=== PATIENT | female | born 1955 | race Caucasian/White ===

== ENCOUNTER → 2016-07-09 | Outpatient (CLI) | payer OTHER ==
[~2016-07-09] MED LIST: ISOVUE-370 76% 100ML VIAL (Q9967) As Ordered ONE; OXYC1TAB23 PO
--- NOTE | 2016-07-09 09:21 | REP ---
CT NECK WITH CONTRAST: HISTORY: Hard palate lesion. CONTRAST: Isovue 370, 75 mL. The naso-, gloria- and hypopharynx, larynx and subglottic trachea are normal in appearance. The salivary and thyroid glands are normal. Small lymph nodes less than 1 cm in size are present in the internal jugular chains, posterior triangles, submandibular and submental areas. There is no neck mass or adenopathy. Minimal degenerative change is present in the cervical spine. The lung apices are clear. The visualized sinuses are clear. IMPRESSION: There is no neck mass or adenopathy. Signed by Yasir Leger MD 07/09/2016 09:29 A
== END | disposition home or self-care (01) ==
LOC: M RAD 08:08
PROVIDERS: ATTEND Otolaryngology
DX: K13.79 Other lesions of oral mucosa (principal)

== ENCOUNTER → 2016-08-27 | Outpatient (CLI) | payer OTHER ==
[~2016-08-27] MED LIST changes: -ISOVUE-370 76% 100ML VIAL (Q9967) As Ordered ONE
--- NOTE | 2016-08-27 14:48 | REPMRS ---
Patient History The patient states she had a clinical breast exam in Family history of ovarian cancer in maternal grandmother at age 50 or over. Digital Woman Screen Mammo: August 27, 2016 - Exam #: [id number] Bilateral CC and MLO view(s) were taken. Technologist: Marlena Fisher, Technologist Prior study comparison: June 01, 2014, digital woman screen mammo performed at [facility]. April 02, 2011, bilateral mammogram, performed at [facility]. FINDINGS: There are scattered fibroglandular densities. There has been no change in the appearance of the mammogram from the prior studies. There is a mild amount of scattered fibroglandular density which is fairly symmetric. There is no interval development of dominant mass, architectural distortion, or clustered microcalcification suggestive of malignancy. ASSESSMENT: BI-RADS/ACR category 1 mammogram. Negative. Recommendation Routine screening mammogram in 1 year (for women over age 40). This mammogram was interpreted with the aid of an FDA-approved computer-aided dectection system. Electronically Signed By: Uri Hoang MD 08/27/16 [id number]
== END ==
LOC: M WHC 13:07
PROVIDERS: ATTEND Nurse Practitioner Women's Health
DX: Z12.31 Encounter for screening mammogram for malignant neoplasm of breast (principal); Z80.41 Family history of malignant neoplasm of ovary

== ENCOUNTER → 2017-05-21 | Outpatient (REF) | payer OTHER | LOC: M SFHCWAGY 15:32 | PROVIDERS: ATTEND Nurse Practitioner Women's Health | DX: N89.8 Other specified noninflammatory disorders of vagina (principal); N76.0 Acute vaginitis; B96.89 Other specified bacterial agents as the cause of diseases classified elsewhere ==

== ENCOUNTER → 2017-12-02 | Outpatient (REF) | payer OTHER | LOC: M SFHCWAGY 16:36 | DX: N89.8 Other specified noninflammatory disorders of vagina (principal) ==

== ENCOUNTER 2018-01-15 03:12 | Emergency (ER) | payer OTHER ==
[2018-01-15 04:22] LABS: HEMATOCRIT 42.3 % (36.0-47.0); HEMOGLOBIN 14.2 g/dl (12.0-15.5); MEAN CORPUSCULAR HEMOGLOBIN 30.1 pg (27.0-33.0); MEAN CORPUSCULAR HGB CONC 33.6 g/dl (32.0-36.5); MEAN CORPUSCULAR VOLUME 89.6 fl (80.0-96.0); PLATELET COUNT, AUTOMATED 248 10^3/uL (150-450); RED BLOOD COUNT 4.72 10^6/uL (4.00-5.40); RED CELL DISTRIBUTION WIDTH 12.7 % (11.5-14.5); WHITE BLOOD COUNT 8.4 10^3/uL (4.0-10.0)
[2018-01-15 04:53] LABS: AMPHETAMINES LEVEL URINE NEGATIVE (NEGATIVE); BARBITURATES URINE NEGATIVE (NEGATIVE); BENZODIAZEPINES URINE NEGATIVE (NEGATIVE); CANNABINOIDS URINE POSITIVE (NEGATIVE); COCAINE METABOLITE URINE NEGATIVE (NEGATIVE); METHADONE URINE NEGATIVE (NEGATIVE); OPIATES URINE NEGATIVE (NEGATIVE); PHENCYCLIDINE URINE NEGATIVE (NEGATIVE)
[2018-01-15 04:55] LABS: ALBUMIN 3.6 GM/DL (3.2-5.2); ALKALINE PHOSPHATASE 102 U/L (45-117); ALT/SGPT 23 U/L (12-78); ANION GAP 9 MEQ/L (8-16); AST/SGOT 15 U/L (7-37); BILIRUBIN,DIRECT < 0.1 MG/DL (0.0-0.2); BILIRUBIN,TOTAL 0.3 MG/DL (0.2-1.0); BLOOD UREA NITROGEN 15 MG/DL (7-18); CALCIUM LEVEL 8.4 MG/DL (8.8-10.2); CARBON DIOXIDE LEVEL 25 MEQ/L (21-32); CHLORIDE LEVEL 108 MEQ/L (98-107); CREATININE FOR GFR 0.73 MG/DL (0.55-1.30); ETHYL ALCOHOL (ETHANOL) < 0.003 % (0.000-0.010); GLOMERULAR FILTRATION RATE > 60.0 (>45); GLUCOSE, FASTING 97 MG/DL (70-100); POTASSIUM SERUM 4.1 MEQ/L (3.5-5.1); SALICYLATE LEVEL 4.5 MG/DL (5.0-30.0); SODIUM LEVEL 142 MEQ/L (136-145); THYROID STIMULATING HORMONE 0.676 uIU/ML (0.358-3.740); TOTAL PROTEIN 6.6 GM/DL (6.4-8.2)
[2018-01-15 05:04] LABS: ACETAMINOPHEN LEVEL < 2.0 UG/ML (10.0-30.0)
[2018-01-15] MEDS: SERTRALINE 100 MG TAB PO (09:26)
[2018-01-15] MEDS: LORazepam 1 MG TAB PO (09:26)
== END 2018-01-15 12:14 | disposition home or self-care (01) ==
LOC: M ED 03:12
DX: F32.9 Major depressive disorder, single episode, unspecified (principal); Z72.0 Tobacco use; F12.10 Cannabis abuse, uncomplicated; Z79.899 Other long term (current) drug therapy; Z88.8 Allergy status to other drugs, medicaments and biological substances; Z91.040 Latex allergy status
CPT/HCPCS: 80320

== ENCOUNTER → 2018-04-17 | Outpatient (CLI) | payer OTHER | LOC: M SMT 13:49 | DX: M12.862 Other specific arthropathies, not elsewhere classified, left knee (principal) | CPT/HCPCS: 73564 ==

== ENCOUNTER → 2018-07-30 | Outpatient (REF) | payer OTHER ==
[~2018-07-30] MED LIST changes: +FLUTISP NARES; +HYDR50TA70 PO; +TIZA4CAP6 PO; +XYZA5TAB4 PO; +ZOLO100T PO
== END ==
LOC: M SFHCWAGY 15:34
PROVIDERS: ATTEND Nurse Practitioner Women's Health
DX: R39.15 Urgency of urination (principal); R35.0 Frequency of micturition; R10.2 Pelvic and perineal pain

== ENCOUNTER → 2018-10-14 | Outpatient (CLI) | payer OTHER ==
[2018-10-14 14:55] LABS: BASO # 0.1 10^3/uL (0.0-0.2); BASO % 0.7 % (0.0-1.0); EOS # 0.2 10^3/uL (0.0-0.50); EOS % 2.1 % (0.0-3.0); HEMATOCRIT 45.4 % (36.0-47.0); HEMOGLOBIN 14.7 g/dl (12.0-15.5); LYMPH # 1.9 10^3/uL (1.5-4.5); LYMPH % 25.3 % (24.0-44.0); MEAN CORPUSCULAR HEMOGLOBIN 29.4 pg (27.0-33.0); MEAN CORPUSCULAR HGB CONC 32.4 g/dl (32.0-36.5); MEAN CORPUSCULAR VOLUME 90.8 fl (80.0-96.0); MONO # 0.5 10^3/uL (0.0-0.8); MONO % 6.8 % (0.0-5.0); NEUTROPHILS # 4.7 10^3/uL (1.8-7.7); NEUTROPHILS % 64.8 % (36.0-66.0); PLATELET COUNT, AUTOMATED 255 10^3/uL (150-450); WHITE BLOOD COUNT 7.3 10^3/uL (4.0-10.0)
[2018-10-14 14:57] LABS: ALBUMIN 4.1 GM/DL (3.2-5.2); ALT/SGPT 22 U/L (12-78); BILIRUBIN,TOTAL 0.4 MG/DL (0.2-1.0); BLOOD UREA NITROGEN 13 MG/DL (7-18); CALCIUM LEVEL 9.3 MG/DL (8.8-10.2); CARBON DIOXIDE LEVEL 31 MEQ/L (21-32); CHLORIDE LEVEL 103 MEQ/L (98-107); CHOLESTEROL LEVEL 209 MG/DL (<200); CREATININE FOR GFR 0.82 MG/DL (0.55-1.30); GLOMERULAR FILTRATION RATE > 60.0 (>45); GLUCOSE, FASTING 87 MG/DL (70-100); HDL CHOLESTEROL 54 MG/DL (>40); LDL CHOLESTEROL 134 MG/DL (<100); NON-HDL-C 155 MG/DL; POTASSIUM SERUM 4.2 MEQ/L (3.5-5.1); SODIUM LEVEL 137 MEQ/L (136-145); THYROID STIMULATING HORMONE 0.913 uIU/ML (0.358-3.740); TOTAL PROTEIN 6.9 GM/DL (6.4-8.2); TRIGLYCERIDES LEVEL 103 MG/DL (<150)
[2018-10-14 15:19] LABS: TOTAL 25(OH) VITAMIN D 24.5 NG/ML (30.0-100.0)
== END ==
LOC: M LAB 13:24
PROVIDERS: ATTEND Nurse Practitioner Family
DX: E78.5 Hyperlipidemia, unspecified (principal); E55.9 Vitamin D deficiency, unspecified; R07.9 Chest pain, unspecified

== ENCOUNTER 2019-04-10 14:27 | Emergency (ER) | payer OTHER ==
[~2019-04-10] VITALS: Ht 167.6 cm; Wt 98.9 kg
[2019-04-10] MEDS ORDERED: ABIL1TAB13 PO (14:39)
[2019-04-10] MEDS ORDERED: ACETAMINOPHEN TAB 650MG DOSE (2X325MG) PO ONE (15:00)
[2019-04-10 15:28] VITALS: BP 115/64
--- NOTE | 2019-04-11 07:33 | REP ---
CT BRAIN WITHOUT IV CONTRAST: CT brain performed without IV contrast. Ventricles are normal in size and position with no midline shift or mass effect. Cao-white differentiation is well maintained. There is no acute intracranial hemorrhage or extra-axial fluid collection. No skull fracture is seen. IMPRESSION: Negative noncontrast CT brain. Electronically Signed by Arcadio Cao MD 04/11/2019 12:22 P
--- NOTE | 2019-04-11 07:35 | REP ---
CT CERVICAL SPINE: CT cervical spine performed in the axial plane with sagittal and coronal reconstruction images. There is no compression fracture or malalignment. There is no prevertebral soft tissue swelling. There is mild spurring and disc space narrowing at the C5-6 level. Mild narrowing is also seen at C6-7. No abnormal density is seen in the spinal canal. IMPRESSION: Mild degenerative changes. No fracture or dislocation. Electronically Signed by Arcadio Cao MD 04/11/2019 12:22 P
== END 2019-04-10 15:29 | disposition home or self-care (01) ==
LOC: M ED 14:27
DX: S06.0X0A Concussion without loss of consciousness, initial encounter (principal); S16.1XXA Strain of muscle, fascia and tendon at neck level, initial encounter; Y04.8XXA Assault by other bodily force, initial encounter; Y92.89 Other specified places as the place of occurrence of the external cause; Z79.899 Other long term (current) drug therapy; Z88.8 Allergy status to other drugs, medicaments and biological substances; F17.210 Nicotine dependence, cigarettes, uncomplicated

== ENCOUNTER 2019-05-15 18:14 | Emergency (ER) | payer OTHER ==
[~2019-05-15] VITALS: Ht 167.6 cm; Wt 95.0 kg
[2019-05-15 18:14] VITALS: BP 120/68
[~2019-05-15 18:14] MED LIST changes: +ABIL1TAB13 PO
--- NOTE | 2019-05-15 19:01 | REP ---
Clinical: Cough and chest pain . Comparison: 06/20/2014 . Technique: PA and lateral. Findings: The mediastinum and cardiac silhouette are normal. The lung diaz are clear and without acute consolidation, effusion, or pneumothorax. The skeletal structures are intact and normal. Impression: 1. No acute cardiopulmonary process. Electronically Signed by Ole Dodd MD 05/15/2019 06:52 P
[2019-05-15 19:14] LABS: BASO # 0.1 10^3/uL (0.0-0.2); BASO % 0.8 % (0.0-1.0); EOS # 0.2 10^3/uL (0.0-0.5); EOS % 2.8 % (0.0-3.0); HEMATOCRIT 48.4 % (36.0-47.0); HEMOGLOBIN 15.5 g/dl (12.0-15.5); LYMPH # 2.3 10^3/uL (1.5-5.0); LYMPH % 26.8 % (24.0-44.0); MEAN CORPUSCULAR HEMOGLOBIN 29.5 pg (27.0-33.0); MONO # 0.7 10^3/uL (0.0-0.8); MONO % 8.1 % (0.0-5.0); NEUTROPHILS # 5.3 10^3/uL (1.5-8.5); NEUTROPHILS % 61.3 % (36.0-66.0); PLATELET COUNT, AUTOMATED 262 10^3/uL (150-450); RED BLOOD COUNT 5.26 10^6/uL (4.00-5.40); WHITE BLOOD COUNT 8.7 10^3/uL (4.0-10.0)
[2019-05-15 19:48] LABS: CALCIUM LEVEL 9.4 MG/DL (8.8-10.2); CREATININE FOR GFR 1.02 MG/DL (0.55-1.30); GLOMERULAR FILTRATION RATE 58.7 (>45); POTASSIUM SERUM 4.8 MEQ/L (3.5-5.1)
--- NOTE | 2019-05-16 07:43 | ECGEPIP ---
[facility] - ED Test Date: 2019-05-15 Pat Name: SHELDON SUE Department: Room: - Gender: Female Echo Technician: abdifatah : 1955 Requested By: Arpan Stoner Order Number: [id number] Reading MD: Vikas Sow Measurements Intervals [place] Rate: 70 P: -14 CA: 165 QRS: 13 QRSD: 86 T: 25 QT: 393 QTc: 425 Interpretive Statements SINUS RHYTHM Electronically Signed on 05-16-2019 7:43:32 EST by Vikas Sow
== END 2019-05-15 20:14 | disposition home or self-care (01) ==
LOC: M ED 18:14
DX: J06.9 Acute upper respiratory infection, unspecified (principal); F33.9 Major depressive disorder, recurrent, unspecified; F41.9 Anxiety disorder, unspecified; H91.90 Unspecified hearing loss, unspecified ear; Z79.899 Other long term (current) drug therapy; Z88.8 Allergy status to other drugs, medicaments and biological substances; F17.210 Nicotine dependence, cigarettes, uncomplicated

== ENCOUNTER → 2019-06-18 | Outpatient (CLI) | payer OTHER ==
[2019-06-18 13:36] LABS: BASO # 0.1 10^3/uL (0.0-0.2); BASO % 0.8 % (0.0-1.0); EOS # 0.1 10^3/uL (0.0-0.5); EOS % 1.6 % (0.0-3.0); HEMATOCRIT 49.8 % (36.0-47.0); HEMOGLOBIN 15.8 g/dl (12.0-15.5); LYMPH # 1.7 10^3/uL (1.5-5.0); LYMPH % 20.3 % (24.0-44.0); MEAN CORPUSCULAR HEMOGLOBIN 29.1 pg (27.0-33.0); MEAN CORPUSCULAR HGB CONC 31.7 g/dl (32.0-36.5); MEAN CORPUSCULAR VOLUME 91.7 fl (80.0-96.0); MONO # 0.6 10^3/uL (0.0-0.8); MONO % 6.9 % (0.0-5.0); NEUTROPHILS # 5.9 10^3/uL (1.5-8.5); NEUTROPHILS % 70.2 % (36.0-66.0); PLATELET COUNT, AUTOMATED 264 10^3/uL (150-450); RED BLOOD COUNT 5.43 10^6/uL (4.00-5.40); WHITE BLOOD COUNT 8.4 10^3/uL (4.0-10.0)
[2019-06-18 14:10] LABS: HEMOGLOBIN A1c 5.7 %
[2019-06-18 14:11] LABS: ALBUMIN 4.1 GM/DL (3.2-5.2); ALT/SGPT 28 U/L (12-78); BILIRUBIN,TOTAL 0.5 MG/DL (0.2-1.0); BLOOD UREA NITROGEN 16 MG/DL (7-18); CALCIUM LEVEL 9.3 MG/DL (8.8-10.2); CARBON DIOXIDE LEVEL 27 MEQ/L (21-32); CHLORIDE LEVEL 106 MEQ/L (98-107); CHOLESTEROL LEVEL 223 MG/DL (<200); CHOLESTEROL RISK RATIO 4.744 (<5); CREATININE FOR GFR 0.84 MG/DL (0.55-1.30); GLOMERULAR FILTRATION RATE > 60.0 (>45); GLUCOSE, FASTING 100 MG/DL (70-100); HDL CHOLESTEROL 47 MG/DL (>40); LDL CHOLESTEROL 148 MG/DL (<100); NON-HDL-C 176 MG/DL; POTASSIUM SERUM 4.4 MEQ/L (3.5-5.1); SODIUM LEVEL 138 MEQ/L (136-145); THYROID STIMULATING HORMONE 0.746 uIU/ML (0.358-3.740); TOTAL 25(OH) VITAMIN D 26.4 NG/ML (30.0-100.0); TOTAL PROTEIN 7.3 GM/DL (6.4-8.2); TRIGLYCERIDES LEVEL 139 MG/DL (<150)
== END ==
LOC: M LAB 13:04
PROVIDERS: ATTEND Nurse Practitioner Family
DX: E66.3 Overweight (principal); E11.9 Type 2 diabetes mellitus without complications

== ENCOUNTER → 2019-07-09 | Outpatient (CLI) | payer OTHER ==
[~2019-07-09] MED LIST changes: +ASPE4PAD TOP; +COLA100C5 PO; +IBUP80TA PO; +MIRA3350 PO; +PROC1AER16 PR; +TRAM50TA2 PO
--- NOTE | 2019-07-14 14:13 | DEXA ---
AP SPINE L1 - L4 1.027 -1.4 0.0 LT FEMUR TOTAL 0.904 -0.8 0.2 LT NECK 0.820 -1.6 -0.3 RT FEMUR TOTAL 0.902 -0.8 0.2 RT NECK 0.806 -1.7 -0.4 TOTAL BODY TOTAL OTHER COMMENTS: There is low bone density of the spine and hips. The increased density of the spine does represent a significant change. The decreased density of the left hip does represent a significant change. The decreased density of the right hip does represent a significant change. The density of the spine has decreased 0.8% since the initial exam on 12/09/2006. The spine density has increased 2.4% since the most recent exam on 12/11/2011. The density of the left hip has decreased 12.8% since the initial exam on 12/09/2006. The density of the left hip has decreased 8.3% since the most recent exam on 12/11/2011. The density of the right hip has decreased 10.7% since the initial exam on 12/09/2006. The density of the right hip has decreased 6.4% since the most recent exam on 12/11/2011. FOLLOW-UP: Recommendation for the next bone density exam: 2 years. JOSE ALBERTO
== END ==
LOC: M WHC 14:48
PROVIDERS: ATTEND Nurse Practitioner Family
DX: M85.80 Other specified disorders of bone density and structure, unspecified site (principal)

== ENCOUNTER 2019-07-14 15:52 | Emergency (ER) | payer OTHER ==
[~2019-07-14] VITALS: Ht 167.6 cm; Wt 97.6 kg
[~2019-07-14 15:52] MED LIST changes: -ASPE4PAD TOP; -COLA100C5 PO; -IBUP80TA PO; -MIRA3350 PO; -PROC1AER16 PR; -TRAM50TA2 PO
[2019-07-14] MEDS ORDERED: TRAM50TA2 PO (16:00)
[2019-07-14] MEDS ORDERED: ASPE4PAD TOP (16:00)
[2019-07-14] MEDS ORDERED: IBUP80TA PO (16:00)
[2019-07-14] MEDS ORDERED: NS 1,000 ML IV ONE (18:00)
[2019-07-14] MEDS ORDERED: KETOROLAC 30 MG/ML VIAL (J1885) IV ONE (18:00)
[2019-07-14 18:41] LABS: BASO # 0.1 10^3/uL (0.0-0.2); EOS # 0.2 10^3/uL (0.0-0.5); EOS % 2.3 % (0.0-3.0); HEMATOCRIT 47.3 % (36.0-47.0); HEMOGLOBIN 15.4 g/dl (12.0-15.5); LYMPH # 2.7 10^3/uL (1.5-5.0); LYMPH % 28.7 % (24.0-44.0); MEAN CORPUSCULAR HEMOGLOBIN 29.6 pg (27.0-33.0); MEAN CORPUSCULAR HGB CONC 32.6 g/dl (32.0-36.5); MEAN CORPUSCULAR VOLUME 90.8 fl (80.0-96.0); MONO # 0.8 10^3/uL (0.0-0.8); NEUTROPHILS # 5.5 10^3/uL (1.5-8.5); NEUTROPHILS % 58.8 % (36.0-66.0); PLATELET COUNT, AUTOMATED 277 10^3/uL (150-450); RED BLOOD COUNT 5.21 10^6/uL (4.00-5.40); WHITE BLOOD COUNT 9.3 10^3/uL (4.0-10.0)
[2019-07-14] MEDS ORDERED: ISOVUE-370 76% 100ML VIAL (Q9967) As Ordered ONE (18:42)
[2019-07-14 18:59] LABS: INR 0.95; PARTIAL THROMBOPLASTIN TIME 25.1 SECONDS (25.0-38.4); PROTHROMBIN TIME 12.4 SECONDS (11.8-14.0)
[2019-07-14 19:13] LABS: ALT/SGPT 31 U/L (12-78); BILIRUBIN,DIRECT < 0.1 MG/DL (0.0-0.2); BILIRUBIN,TOTAL 0.3 MG/DL (0.2-1.0); LIPASE 182 U/L (73-393); TOTAL PROTEIN 7.3 GM/DL (6.4-8.2)
--- NOTE | 2019-07-14 19:34 | REPVR ---
PROCEDURE INFORMATION: Exam: CT Abdomen And Pelvis With Contrast Exam date and time: 07/14/2019 6:53 PM Age: 63 years old Clinical indication: Abdominal pain; Localized; Lower; Additional info: Rectal pain/lower abd pain TECHNIQUE: Imaging protocol: Computed tomography of the abdomen and pelvis with intravenous contrast. Radiation optimization: All CT scans at this facility use at least one of these dose optimization techniques: automated exposure control; mA and/or kV adjustment per patient size (includes targeted exams where dose is matched to clinical indication); or iterative reconstruction. Contrast material: ISOVUE 370; Contrast volume: 100 ml; Contrast route: IV; COMPARISON: US PELVIC NON-OB COMPLETE 06/28/2014 4:25 PM FINDINGS: Liver: There is a diffuse decrease in hepatic parenchymal density, consistent with fatty infiltration. Gallbladder and bile ducts: The gallbladder is incompletely distended. This is most likely related to incomplete fasting. Clinical correlation to exclude gallbladder pathology suggested. Pancreas: Normal. No ductal dilation. Spleen: Normal. No splenomegaly. Adrenals: Normal. No mass. Kidneys and ureters: Normal. No hydronephrosis. Stomach and bowel: Unremarkable. No obstruction. No mucosal thickening. Appendix: No evidence of appendicitis. Intraperitoneal space: Unremarkable. No free air. No significant fluid collection. Vasculature: Unremarkable. No abdominal aortic aneurysm. Lymph nodes: Unremarkable. No enlarged lymph nodes. Bladder: There is mild diffuse thickening of the wall of the bladder without significant perivesicular inflammatory changes. Findings may indicate cystitis. Reproductive: There has been a hysterectomy. Bones/joints: Unremarkable. No acute fracture. Soft tissues: Bilateral inguinal hernias without incarceration. Fatty mid ventral abdominal wall hernia without evidence of incarceration. IMPRESSION: 1. There is a diffuse decrease in hepatic parenchymal density, consistent with fatty infiltration. 2. The gallbladder is incompletely distended. This is most likely related to incomplete fasting. Clinical correlation to exclude gallbladder pathology suggested. 3. There has been a hysterectomy. 4. There is mild diffuse thickening of the wall of the bladder without significant perivesicular inflammatory changes. Findings may indicate cystitis. 5. Fatty mid ventral abdominal wall hernia without evidence of incarceration. Electronically signed by: Kedar Holland On 07/14/2019 19:34:41 PM
[2019-07-14] MEDS ORDERED: PROC1AER16 PR (20:10)
[2019-07-14] MEDS ORDERED: MIRA3350 PO (20:10)
[2019-07-14] MEDS ORDERED: COLA100C5 PO (20:10)
[2019-07-14 20:15] VITALS: BP 140/79
== END 2019-07-14 20:32 | disposition home or self-care (01) ==
LOC: M ED 15:52
DX: K64.9 Unspecified hemorrhoids (principal); K40.90 Unilateral inguinal hernia, without obstruction or gangrene, not specified as recurrent; M54.9 Dorsalgia, unspecified; G89.29 Other chronic pain; F41.9 Anxiety disorder, unspecified; F32.9 Major depressive disorder, single episode, unspecified; F17.210 Nicotine dependence, cigarettes, uncomplicated; Z88.8 Allergy status to other drugs, medicaments and biological substances; Z79.899 Other long term (current) drug therapy
CPT/HCPCS: 74177; 80047; 80076; 81001; 83690; 85025; 85610; 85730; 96361; 96374; 99284; J1885; Q9967

== ENCOUNTER → 2019-07-23 | Outpatient (REF) | payer OTHER ==
[~2019-07-23] MED LIST changes: +ASPE4PAD TOP; +COLA100C5 PO; +IBUP80TA PO; +MIRA3350 PO; +PROC1AER16 PR; +TRAM50TA2 PO
== END ==
LOC: M PLALAB 15:08
PROVIDERS: ATTEND Family Medicine
DX: L98.9 Disorder of the skin and subcutaneous tissue, unspecified (principal)

== ENCOUNTER → 2020-04-25 | Outpatient (CLI) | payer OTHER ==
[2020-04-25 12:15] LABS: HEMOGLOBIN 15.3 g/dl (12.0-15.5); MEAN CORPUSCULAR HEMOGLOBIN 29.3 pg (27.0-33.0); MEAN CORPUSCULAR HGB CONC 31.9 g/dl (32.0-36.5); PLATELET COUNT, AUTOMATED 274 10^3/uL (150-450); RED BLOOD COUNT 5.22 10^6/uL (4.00-5.40); WHITE BLOOD COUNT 9.9 10^3/uL (4.0-10.0)
[2020-04-25 12:46] LABS: ALBUMIN 3.8 GM/DL (3.2-5.2); ALT/SGPT 26 U/L (12-78); BILIRUBIN,TOTAL 0.4 MG/DL (0.2-1.0); BLOOD UREA NITROGEN 19 MG/DL (7-18); CALCIUM LEVEL 9.2 MG/DL (8.8-10.2); CARBON DIOXIDE LEVEL 29 MEQ/L (21-32); CHLORIDE LEVEL 104 MEQ/L (98-107); CHOLESTEROL LEVEL 185 MG/DL (<200); CHOLESTEROL RISK RATIO 3.854 (<5); CREATININE FOR GFR 0.72 MG/DL (0.55-1.30); GLOMERULAR FILTRATION RATE > 60.0 (>45); GLUCOSE, FASTING 86 MG/DL (70-100); HDL CHOLESTEROL 48 MG/DL (>40); LDL CHOLESTEROL 107 MG/DL (<100); NON-HDL-C 137 MG/DL; POTASSIUM SERUM 4.5 MEQ/L (3.5-5.1); SODIUM LEVEL 139 MEQ/L (136-145); THYROID STIMULATING HORMONE 0.753 uIU/ML (0.358-3.740); TOTAL 25(OH) VITAMIN D 21.3 NG/ML (30.0-100.0); TOTAL PROTEIN 7.1 GM/DL (6.4-8.2); TRIGLYCERIDES LEVEL 152 MG/DL (<150)
[2020-04-25 13:29] LABS: HEMOGLOBIN A1c 5.4 %
== END ==
LOC: M LAB 11:18
DX: E66.3 Overweight (principal)

== ENCOUNTER → 2020-10-24 | Outpatient (CLI) | payer OTHER ==
--- NOTE | 2020-10-24 08:13 | REP ---
INDICATION: UMBILICAL PAIN, STATUS POST HERNIA PAIN COMPARISON: None. TECHNIQUE: Real time ferrara scale ultrasound examination using linear high-frequency transducer. FINDINGS: Ultrasound examination of the periumbilical region demonstrates a 2.4 x 2.6 x 1.6 cm ovoid hyperechoic focus containing small 6 mm benign cystic component likely representing postsurgical granulation tissue. Structure appears avascular. Patient is noted to be status post umbilical hernia repair with mesh deep to the above-mentioned structure. Remainder of the surrounding subcutaneous tissue appears normal. IMPRESSION: Small hyperechoic area as described above most likely representing postsurgical granulation tissue. <Electronically signed by Ole Dodd > 10/24/20 08
== END ==
LOC: M RAD 07:02
PROVIDERS: ATTEND Surgery
DX: R10.33 Periumbilical pain (principal)

== ENCOUNTER 2020-11-18 19:42 | Emergency (ER) | payer OTHER ==
[~2020-11-18] VITALS: Ht 165.1 cm; Wt 98.9 kg
[2020-11-18 19:43] VITALS: BP 119/63
[2020-11-18] MEDS ORDERED: BUSP5TA PO (19:54)
== END 2020-11-18 21:25 | disposition home or self-care (01) ==
LOC: M ED 19:42
DX: J32.9 Chronic sinusitis, unspecified (principal); F17.200 Nicotine dependence, unspecified, uncomplicated; Z79.899 Other long term (current) drug therapy; Z88.8 Allergy status to other drugs, medicaments and biological substances

== ENCOUNTER → 2020-11-20 | Outpatient (CLI) | payer OTHER ==
[~2020-11-20] MED LIST changes: +BUSP5TA PO
--- NOTE | 2020-11-20 08:45 | REP ---
INDICATION: RIGHT UPPER QUAD PAIN COMPARISON: None. TECHNIQUE: Real time ferrara scale ultrasound examination using curved array transducer. FINDINGS: Liver is mildly hyperechoic suggesting fatty infiltration without focal hepatic lesions identified. Pancreas is incompletely evaluated due to interposed bowel gas. The gallbladder is normal and without gallstones, wall thickening, or pericholecystic fluid. No biliary ductal dilatation is appreciated and the common bile duct measures 5 mm diameter. Right kidney is normal in reniform shape without hydronephrosis and measures 10.5 x 6.7 x 4.5 cm. No ascites in the visualized right upper quadrant. IMPRESSION: Hepatosteatosis. <Electronically signed by Ole Dodd > 11/20/20 [id number]
== END ==
LOC: M RAD 08:05
PROVIDERS: ATTEND Surgery
DX: R10.11 Right upper quadrant pain (principal)

== ENCOUNTER → 2021-01-09 | Outpatient (CLI) | payer OTHER ==
--- NOTE | 2021-01-09 16:26 | REP ---
INDICATION: ABD PAIN, R/O KIDNEY STONE. COMPARISON: 07/14/2019 TECHNIQUE: Noncontrast scanning through the abdomen and pelvis with both coronal and sagittal reconstructions. FINDINGS: CT abdomen pelvis: Lung bases are clear. The heart is not grossly enlarged there is calcification of the mitral annulus but no pericardial thickening or effusion. No hiatal hernia. Liver and spleen show no focal lesion. The gallbladder is contracted without calcified stone. Retained meal in the stomach. Pancreas shows no mass, ductal dilatation or adjacent inflammatory change the abdominal aorta is without aneurysm. There is no periaortic, other retroperitoneal or intra-pathologic sized lymph adenopathy. Small bowel loops in the abdomen and pelvis were unremarkable and without dilatation or air-fluid levels. Abdominal portions of the colon show no sign of colitis or diverticulitis. No ascites in the abdomen or pelvis. Lung window review of all images there is shows no evidence of perforation or free air. Kidneys show no hydronephrosis, stone, mass or perinephric edema on axial image 69, a subtle density is seen that may reflect the 1-2 mm stone in the proximal ureter. However there is no collecting system or ureteral dilatation. Remainder of the course of the ureter was unremarkable and without dilatation or stone. There are some pelvic phleboliths present. The bladder shows no wall thickening, mass or stone. Distal ureters not dilated near it. The pelvic portions of colon and small bowel were unremarkable. There is no ventral or inguinal hernia in the pelvis. There is a small amount of omental fat herniating into the periumbilical region but no bowel herniation. Bone windows are unchanged without acute compression deformity or destructive lesions. No inguinal adenopathy or hernia. No midline ventral hernia in the pelvis. IMPRESSION: There is a subtle 1-2 mm density proximal right ureter on axial images 69. May reflect is tiny stone in this region however there is no hydronephrosis or hydroureter above that point nor any other suspicious findings in the remainder of the ureter. No ureteral stone on the left. Left kidney and collecting system unremarkable as well. Finding may represent a noncalcified and certainly nonobstructive stone. No other significant or acute findings. <Electronically signed by Steve Major > 01/09/21 [id number]
== END ==
LOC: M RAD 14:57
PROVIDERS: ATTEND Nurse Practitioner Family
DX: R10.9 Unspecified abdominal pain (principal)

== ENCOUNTER → 2021-02-05 | Outpatient (CLI) | payer OTHER ==
[2021-02-05 16:05] LABS: HEMATOCRIT 44.4 % (36.0-47.0); HEMOGLOBIN 14.8 g/dl (12.0-15.5); MEAN CORPUSCULAR HEMOGLOBIN 29.6 pg (27.0-33.0); MEAN CORPUSCULAR HGB CONC 33.3 g/dl (32.0-36.5); MEAN CORPUSCULAR VOLUME 88.8 fl (80.0-96.0); PLATELET COUNT, AUTOMATED 245 10^3/uL (150-450)
[2021-02-05 16:34] LABS: ALBUMIN 3.5 GM/DL (3.2-5.2); ALT/SGPT 29 U/L (12-78); BILIRUBIN,TOTAL 0.3 MG/DL (0.2-1.0); BLOOD UREA NITROGEN 13 MG/DL (7-18); CALCIUM LEVEL 9.2 MG/DL (8.8-10.2); CARBON DIOXIDE LEVEL 29 MEQ/L (21-32); CHLORIDE LEVEL 104 MEQ/L (98-107); CREATININE FOR GFR 0.77 MG/DL (0.55-1.30); GLOMERULAR FILTRATION RATE > 60.0 (>45); GLUCOSE, FASTING 93 MG/DL (70-100); POTASSIUM SERUM 4.1 MEQ/L (3.5-5.1); SODIUM LEVEL 137 MEQ/L (136-145); TOTAL PROTEIN 6.6 GM/DL (6.4-8.2)
== END ==
LOC: M LAB 15:11
PROVIDERS: ATTEND Nurse Practitioner Family
DX: R10.9 Unspecified abdominal pain (principal)

== ENCOUNTER → 2021-02-06 | Outpatient (REF) | payer OTHER | LOC: M LAB REF 09:04 | PROVIDERS: ATTEND Nurse Practitioner Family | DX: K92.1 Melena (principal) ==

== ENCOUNTER → 2021-03-01 | Outpatient (CLI) | payer OTHER ==
--- NOTE | 2021-03-01 16:38 | REP ---
INDICATION: LOW BACK PAIN COMPARISON: 07/11/2010 TECHNIQUE: AP, lateral, bilateral oblique, and coned-down views of the lumbar spine. FINDINGS: Age-related osteopenia and mild degenerative changes include endplate sclerosis with disc space narrowing at L5-S1 and associated facet hypertrophy. Alignment and lordosis maintained. No acute fracture/compression injury or subluxation. IMPRESSION: Relatively stable osteopenia and lower lumbar degenerative changes. <Electronically signed by Ole Dodd > 03/01/21 [id number]
--- NOTE | 2021-03-01 16:39 | REP ---
INDICATION: LOW BACK PAIN Nontraumatic hip pain. COMPARISON: None. TECHNIQUE: Frontal view of the pelvis with neutral and frog lateral views of the right hip. FINDINGS: No evidence for acute fracture or dislocation. Generalized age-related changes to the hip joints includes subtle sclerosis and minimal joint space narrowing (left greater than right). IMPRESSION: Relatively age-related changes noted bilaterally. <Electronically signed by Ole Dodd > 03/01/21 [id number]
--- NOTE | 2021-03-01 16:52 | REP ---
INDICATION: LOW BACK PAIN COMPARISON: None. TECHNIQUE: AP, lateral, bilateral oblique and sunrise views. FINDINGS: The osseous structures and joint spaces are intact and essentially age-appropriate. There is no evidence for acute fracture or dislocation. No joint effusion is appreciated. Surrounding soft tissues are unremarkable. No subcutaneous emphysema or radiodense foreign body. IMPRESSION: Essentially age-appropriate right knee radiographs. No overt arthritic changes. No evidence for acute or healed injury. <Electronically signed by Ole Dodd > 03/01/21 0977
== END ==
LOC: M RAD 16:01
PROVIDERS: ATTEND Nurse Practitioner Family
DX: M54.5 Low back pain (principal); M51.26 Other intervertebral disc displacement, lumbar region

== ENCOUNTER → 2021-03-07 | Outpatient (CLI) | payer OTHER ==
[2021-03-07 14:09] LABS: RHEUMATOID FACTOR QUANT < 10.0 IU/ML (<15.0); URIC ACID 3.6 MG/DL (2.6-6.0)
[2021-03-09 00:06] LABS: ANTINUCLEAR ANTIBODIES DIRECT Negative (Negative); CYCLIC CITRULLINATED PEPTIDE 6 units (0-19); Lyme Disease IgG/IgM Antibodie <0.91 ISR (0.00-0.90); Lyme Disease IgM Ab Quantitati <0.80 index (0.00-0.79)
== END ==
LOC: M LAB 12:22
PROVIDERS: ATTEND Nurse Practitioner Family
DX: M25.50 Pain in unspecified joint (principal)

== ENCOUNTER → 2021-03-09 | Outpatient (REF) | payer OTHER ==
[~2021-03-09] MED LIST changes: +CIPR-249 PO
[2021-03-09 19:13] LABS: APPEARANCE, URINE CLEAR (CLEAR); BACTERIA, URINE AUTO NEGATIVE (NEGATIVE); BILIRUBIN, URINE AUTO NEGATIVE (NEGATIVE); BLOOD, URINE BLOOD NEGATIVE (NEGATIVE); COLOR, URINE YELLOW (YELLOW); GLUCOSE, URINE (UA) AUTO NEGATIVE (NEGATIVE); KETONE, URINE AUTO NEGATIVE (NEGATIVE); LEUKOCYTE ESTERASE, URINE AUTO NEGATIVE (NEGATIVE); NITRITE, URINE AUTO NEGATIVE (NEGATIVE); PROTEIN, URINE AUTO NEGATIVE (NEGATIVE); RBC, URINE AUTO 0 /HPF (0-3); SPECIFIC GRAVITY URINE AUTO 1.013 (1.002-1.035); SQUAMOUS EPITHELIAL CELL UR AU 1 /HPF (0-6); UROBILINOGEN, URINE AUTO 0.2 mg/dL (0.0-2.0); WBC, URINE AUTO 0 /HPF (0-3)
== END ==
LOC: M SMT 18:47
PROVIDERS: ATTEND Urology
DX: R30.0 Dysuria (principal)

== ENCOUNTER 2021-03-11 14:47 | Emergency (ER) | payer OTHER ==
[~2021-03-11] VITALS: Ht 167.6 cm; Wt 97.5 kg
[~2021-03-11 14:47] MED LIST changes: -CIPR-249 PO
[2021-03-11 16:48] LABS: BASO # 0.1 10^3/uL (0.0-0.2); BASO % 0.6 % (0.0-1.0); EOS # 0.1 10^3/uL (0.0-0.5); EOS % 1.5 % (0.0-3.0); HEMATOCRIT 47.8 % (36.0-47.0); HEMOGLOBIN 15.8 g/dl (12.0-15.5); LYMPH % 23.8 % (24.0-44.0); MEAN CORPUSCULAR HGB CONC 33.1 g/dl (32.0-36.5); MEAN CORPUSCULAR VOLUME 90.7 fl (80.0-96.0); MONO # 0.8 10^3/uL (0.0-0.8); NEUTROPHILS # 5.5 10^3/uL (1.5-8.5); NEUTROPHILS % 64.7 % (36.0-66.0); PLATELET COUNT, AUTOMATED 258 10^3/uL (150-450); RED BLOOD COUNT 5.27 10^6/uL (4.00-5.40); WHITE BLOOD COUNT 8.5 10^3/uL (4.0-10.0)
[2021-03-11] MEDS ORDERED: KETOROLAC 30 MG/ML 1ML VIAL IV ONE (16:50)
[2021-03-11] MEDS ORDERED: NS 1,000 ML IV ONE (16:50)
[2021-03-11] MEDS ORDERED: ONDANSETRON 4MG/2ML VIAL IV ONE (16:50)
[2021-03-11 17:21] LABS: ALBUMIN 3.8 GM/DL (3.2-5.2); BILIRUBIN,DIRECT 0.1 MG/DL (0.0-0.2); BILIRUBIN,TOTAL 0.4 MG/DL (0.2-1.0); TOTAL PROTEIN 7.3 GM/DL (6.4-8.2)
--- NOTE | 2021-03-11 17:48 | REP ---
INDICATION: ruq pain. COMPARISON: 11/20/2020 TECHNIQUE: Real-time sonographic evaluation of the right upper quadrant FINDINGS: Multiple ultrasonographic images of the liver show diffuse increased echoes throughout the hepatic parenchyma without evidence of a mass or ductal dilatation. The common bile duct measures approximately 6 mm in its greatest transverse dimension. Multiple ultrasonographic images of the gallbladder show no focal or diffuse gallbladder wall thickening. There are no echogenic foci within the gallbladder lumen, which casts acoustic shadows. There is no pericholecystic edema. Images of the pancreatic region show no gross abnormality. The imaged portion of the right kidney is unremarkable. IMPRESSION: Fatty infiltration of the liver. No change from 11/21/2019 Accredited by the [employer] in General Ultrasound. <Electronically signed by Stanton Rutherford > 03/11/21 [id number]
[2021-03-11] MEDS ORDERED: ISOVUE-370 76% 100ML VIAL As Ordered ONE (18:43)
--- NOTE | 2021-03-11 20:36 | REPVR ---
PROCEDURE INFORMATION: Exam: CT Abdomen And Pelvis With Contrast Exam date and time: 03/11/2021 6:48 PM Age: 65 years old Clinical indication: Abdominal pain; Additional info: Right sided abd pain TECHNIQUE: Imaging protocol: Computed tomography of the abdomen and pelvis with contrast. Radiation optimization: All CT scans at this facility use at least one of these dose optimization techniques: automated exposure control; mA and/or kV adjustment per patient size (includes targeted exams where dose is matched to clinical indication); or iterative reconstruction. Contrast material: ISOVUE 370; Contrast volume: 100 ml; Contrast route: INTRAVENOUS (IV); COMPARISON: CT ABD PELVIS W/O CONTRAST 01/09/2021 3:08 PM FINDINGS: Lungs: 4 mm x 2 mm density at the right lung base is probably a benign finding. Heart: The heart is normal in size and there is no pericardial effusion. Liver: Normal appearing liver. Gallbladder and bile ducts: Normal gallbladder. Pancreas: Normal pancreas. Spleen: Normal spleen. Adrenal glands: Normal adrenal glands. Kidneys and ureters: There is enhancement of both kidneys. There is no evidence of obstruction of the right or left ureter. There is opacification of the right and left kidney. Stomach and bowel: Unremarkable. No obstruction. No mucosal thickening. Appendix: Normal appendix. Intraperitoneal space: There is no evidence of mesenteric mass. There is no evidence of free fluid in the abdomen or the pelvis. Vasculature: There is opacification of the aorta which appears intact. There is opacification of the SMV and the SMA. There is enhancement of the aorta and appearing normal in size. There is opacification of the SMV and the SMA. Lymph nodes: Unremarkable. No enlarged lymph nodes. Urinary bladder: The urinary bladder is empty. Reproductive: Patient is status post hysterectomy. Bones/joints: Unremarkable. No acute fracture. Soft tissues: There is no evidence of soft tissue abnormality. IMPRESSION: Normal appearing CT scan of the abdomen and pelvis. Electronically signed by: Ra Diaz On 03/11/2021 20:36:12 PM
[2021-03-11] MEDS ORDERED: CIPROFLOXACIN 500MG TABLET PO ONE (21:10)
[2021-03-11] MEDS ORDERED: CIPR-249 PO (21:11)
[2021-03-11 21:23] VITALS: BP 122/72
== END 2021-03-11 21:25 | disposition home or self-care (01) ==
LOC: M ED 14:47
DX: N39.0 Urinary tract infection, site not specified (principal); K76.0 Fatty (change of) liver, not elsewhere classified; Z79.899 Other long term (current) drug therapy
CPT/HCPCS: 74177; 76705; 80047; 80076; 81001; 83690; 85025; 87086; 96361; 96374; 96375; 99284; J1885; J2405; Q9967

== ENCOUNTER 2021-03-15 18:09 | Emergency (ER) | payer OTHER ==
[~2021-03-15] VITALS: Ht 167.6 cm; Wt 97.1 kg
[~2021-03-15 18:09] MED LIST changes: +CIPR-249 PO
[2021-03-16] MEDS ORDERED: diazePAM 10MG/2ML SYRINGE (J3360 PER 5MG) IV ONE (02:10)
[2021-03-16 02:16] LABS: BASO # 0.1 10^3/uL (0.0-0.2); BASO % 0.7 % (0.0-1.0); EOS # 0.2 10^3/uL (0.0-0.5); EOS % 2.1 % (0.0-3.0); HEMATOCRIT 46.5 % (36.0-47.0); HEMOGLOBIN 15.6 g/dl (12.0-15.5); LYMPH # 2.6 10^3/uL (1.5-5.0); LYMPH % 29.9 % (24.0-44.0); MEAN CORPUSCULAR HEMOGLOBIN 30.2 pg (27.0-33.0); MEAN CORPUSCULAR HGB CONC 33.5 g/dl (32.0-36.5); MEAN CORPUSCULAR VOLUME 90.1 fl (80.0-96.0); MONO # 0.8 10^3/uL (0.0-0.8); MONO % 9.1 % (2.0-8.0); PLATELET COUNT, AUTOMATED 247 10^3/uL (150-450); RED BLOOD COUNT 5.16 10^6/uL (4.00-5.40); WHITE BLOOD COUNT 8.6 10^3/uL (4.0-10.0)
[2021-03-16 02:21] LABS: GLUCOSE, URINE (UA) MANUAL NEGATIVE (NEGATIVE); KETONE, URINE MANUAL NEGATIVE (NEGATIVE); UROBILINOGEN, URINE MANUAL NORMAL (NORMAL)
[2021-03-16 02:22] LABS: BILIRUBIN, URINE MANUAL 1+ (NEGATIVE)
[2021-03-16] MEDS ORDERED: NS 500 ML IV ONE (02:25)
[2021-03-16 02:27] LABS: RBC, URINE 0-1 /hpf (0-3)
[2021-03-16 02:28] LABS: AMORPHOUS SEDIMENT, URINE SMALL AMOUNT (NEGATIVE); BACTERIA, URINE SMALL AMOUNT; CALCIUM OXALATE CRYSTALS,URINE SMALL AMOUNT /hpf; HYALINE CAST, URINE NONE SEEN /lpf (0-1); SQUAMOUS EPITHELIAL CELL URINE MOD AMOUNT /hpf (SMALL AMT)
[2021-03-16] MEDS ORDERED: MORPHINE 2 MG/ML 1ML VIAL (J2270) IV ONE (02:50)
[2021-03-16 03:05] LABS: ALBUMIN 3.7 GM/DL (3.2-5.2); BILIRUBIN,DIRECT 0.1 MG/DL (0.0-0.2); BILIRUBIN,TOTAL 0.5 MG/DL (0.2-1.0); CALCIUM LEVEL 9.4 MG/DL (8.8-10.2); CREATININE FOR GFR 1.02 MG/DL (0.55-1.30); GLOMERULAR FILTRATION RATE 58.3 (>45); POTASSIUM SERUM 4.2 MEQ/L (3.5-5.1); TOTAL PROTEIN 7.2 GM/DL (6.4-8.2)
[2021-03-16] MEDS ORDERED: PHENAZOPYRIDINE 100 MG TAB PO ONE (04:05)
[2021-03-16 04:30] VITALS: BP 117/57
[2021-03-16] MEDS ORDERED: PERC5TAB12 PO (05:24)
[2021-03-16] MEDS ORDERED: OXYCODONE/APAP 5MG/325MG(BULK FOR ED) 1 TABLET PO ONE (05:25)
== END 2021-03-16 05:59 | disposition home or self-care (01) ==
LOC: M ED 18:09
DX: R10.2 Pelvic and perineal pain (principal); F33.9 Major depressive disorder, recurrent, unspecified; F17.200 Nicotine dependence, unspecified, uncomplicated; Z79.51 Long term (current) use of inhaled steroids; Z79.899 Other long term (current) drug therapy; Z88.8 Allergy status to other drugs, medicaments and biological substances
CPT/HCPCS: 80048; 80076; 81000; 82150; 83690; 85025; 87086; 87210; 96361; 96374; 99284; J2270; J3360

== ENCOUNTER → 2021-03-16 | Outpatient (REF) | payer OTHER ==
[~2021-03-16] MED LIST changes: +PERC5TAB12 PO
== END ==
LOC: M SFHCWAGY 09:45
PROVIDERS: ATTEND Specialist
DX: N94.819 Vulvodynia, unspecified (principal)

== ENCOUNTER 2021-03-20 22:26 | Emergency (ER) | payer OTHER ==
[~2021-03-20] VITALS: Ht 167.6 cm; Wt 95.7 kg
[2021-03-21 04:52] LABS: BASO # 0.1 10^3/uL (0.0-0.2); BASO % 0.4 % (0.0-1.0); EOS # 0.1 10^3/uL (0.0-0.5); EOS % 0.5 % (0.0-3.0); HEMATOCRIT 44.3 % (36.0-47.0); HEMOGLOBIN 14.7 g/dl (12.0-15.5); LYMPH # 3.2 10^3/uL (1.5-5.0); LYMPH % 26.3 % (24.0-44.0); MEAN CORPUSCULAR HEMOGLOBIN 30.1 pg (27.0-33.0); MEAN CORPUSCULAR HGB CONC 33.2 g/dl (32.0-36.5); MEAN CORPUSCULAR VOLUME 90.6 fl (80.0-96.0); MONO % 8.4 % (2.0-8.0); NEUTROPHILS # 7.9 10^3/uL (1.5-8.5); PLATELET COUNT, AUTOMATED 266 10^3/uL (150-450); RED BLOOD COUNT 4.89 10^6/uL (4.00-5.40); WHITE BLOOD COUNT 12.3 10^3/uL (4.0-10.0)
[2021-03-21 05:13] LABS: BLOOD UREA NITROGEN 17 MG/DL (7-18); CALCIUM LEVEL 9.3 MG/DL (8.8-10.2); CARBON DIOXIDE LEVEL 28 MEQ/L (21-32); CHLORIDE LEVEL 106 MEQ/L (98-107); CREATININE FOR GFR 0.98 MG/DL (0.55-1.30); GLOMERULAR FILTRATION RATE > 60.0 (>45); GLUCOSE, FASTING 96 MG/DL (70-100); POTASSIUM SERUM 4.4 MEQ/L (3.5-5.1); SODIUM LEVEL 138 MEQ/L (136-145)
[2021-03-21] MEDS ORDERED: diazePAM 10MG/2ML SYRINGE (J3360 PER 5MG) IV ONE (05:35)
[2021-03-21] MEDS: NS 1,000 ML IV SCH ×2 (06:00→12:15)
[2021-03-21] MEDS ORDERED: PREGABALIN 75 MG CAP(LYRICA) PO ONE ×2 (08:30→16:05)
[2021-03-21] MEDS: MORPHINE 2 MG/ML 1ML VIAL (J2270) IV PRN ×2 (08:52→16:14)
--- NOTE | 2021-03-21 15:12 | REPVR ---
PROCEDURE INFORMATION: Exam: MR Lumbar Spine Without Contrast Exam date and time: 03/21/2021 2:30 PM Age: 65 years old Clinical indication: Low back pain; Additional info: Low back pain leg numbness TECHNIQUE: Imaging protocol: Multiplanar magnetic resonance images of the lumbar spine without intravenous contrast. COMPARISON: CR Spine. Lumbosacral, complete 03/01/2021 4:15 PM FINDINGS: Vertebrae: Evaluation of the marrow demonstrates no evidence of acute fracture line, high-grade compression deformity, worrisome malalignment, or marrow edema. Benign marrow signal on the T1 weighted images. Hemangiomas are present in T12 and L1. Abge-ft-[id number] posterior element hypertrophic changes at multiple levels. Minimal scoliosis. Limited Modic-type changes in the endplates at L4-L5 and L5-S1. Spinal cord: The conus terminates at L1-L2 without abnormal cord signal. T11-T12: Minimal bulging of the disc right paracentral location at T11-12 without significant mass effect, incompletely visualized. L1-L2: No significant disc disease. No significant spinal canal stenosis. No neural foraminal stenosis. L2-L3: No significant disc disease. No significant spinal canal stenosis. No neural foraminal stenosis. L3-L4: At L3-L4, there is disc material bulging into the left foramina proximally. No significant central stenosis. Mild left-sided foraminal encroachment. L4-L5: At L4-L5, mild broad bulging of the disc is most pronounced centrally without high-grade central stenosis. Minimal bilateral foraminal encroachment. L5-S1: At L5-S1, there is no significant disc abnormality. No high-grade central stenosis. Posterior element hypertrophic changes contribute to mild right and minimal left foraminal encroachment. Sacrum/coccyx: Symmetric SI joints. Soft tissues: Paraspinal muscular atrophy without paraspinal mass or hematoma. Disc desiccation at multiple levels with disc space loss most pronounced at L5-S1. IMPRESSION: Degenerative changes and disc abnormalities with mild mass effect as described. No abnormal cord signal. Electronically signed by: Dilip Crawford On 03/21/2021 15:12:28 PM
[2021-03-21] MEDS ORDERED: LYRI75CA PO (16:07)
[2021-03-21 16:18] VITALS: BP 135/65
[2021-03-22] MEDS ORDERED: PREG75CA2 (13:34)
[2021-03-22] MEDS ORDERED: OXYC1TAB23 (13:34)
[2021-03-22] MEDS ORDERED: BACTDSTA (13:34)
[2021-03-22] MEDS ORDERED: OXYB5TAB10 PO (18:43)
[2021-03-22] MEDS ORDERED: RA M1.74 PO (18:43)
[2021-03-22] MEDS ORDERED: ESTR1TAB3 PO (18:43)
[2021-03-22] MEDS ORDERED: MIRA3350 PO (18:43)
== END 2021-03-21 16:28 | disposition home or self-care (01) ==
LOC: M ED 22:26
DX: N39.0 Urinary tract infection, site not specified (principal); Z79.899 Other long term (current) drug therapy; Z88.8 Allergy status to other drugs, medicaments and biological substances; F17.210 Nicotine dependence, cigarettes, uncomplicated
CPT/HCPCS: 72148; 80048; 81001; 85025; 87086; 96374; 96375; 96376; 99284; J2270; J3360

== ENCOUNTER 2021-03-22 13:16 | Emergency (ER) | payer OTHER ==
[~2021-03-22] VITALS: Ht 167.6 cm; Wt 95.9 kg
[~2021-03-22 13:16] MED LIST changes: +LYRI75CA PO; +estradioL 1 MG TAB PO SCH
[2021-03-22] MEDS ORDERED: OXYC1TAB23 (13:34)
[2021-03-22] MEDS ORDERED: PREG75CA2 (13:34)
[2021-03-22] MEDS ORDERED: BACTDSTA (13:34)
[2021-03-22] MEDS ORDERED: KETOROLAC 30 MG/ML 1ML VIAL IV ONE (15:15)
[2021-03-22 15:19] LABS: BASO # 0.1 10^3/uL (0.0-0.2); BASO % 0.6 % (0.0-1.0); EOS # 0.1 10^3/uL (0.0-0.5); EOS % 0.5 % (0.0-3.0); HEMATOCRIT 43.6 % (36.0-47.0); HEMOGLOBIN 14.5 g/dl (12.0-15.5); LYMPH # 1.4 10^3/uL (1.5-5.0); LYMPH % 14.5 % (24.0-44.0); MEAN CORPUSCULAR HEMOGLOBIN 29.7 pg (27.0-33.0); MEAN CORPUSCULAR HGB CONC 33.3 g/dl (32.0-36.5); MEAN CORPUSCULAR VOLUME 89.2 fl (80.0-96.0); MONO # 0.5 10^3/uL (0.0-0.8); MONO % 5.5 % (2.0-8.0); NEUTROPHILS # 7.7 10^3/uL (1.5-8.5); NEUTROPHILS % 78.4 % (36.0-66.0); PLATELET COUNT, AUTOMATED 249 10^3/uL (150-450); RED BLOOD COUNT 4.89 10^6/uL (4.00-5.40); WHITE BLOOD COUNT 9.9 10^3/uL (4.0-10.0)
[2021-03-22 15:35] LABS: ALBUMIN 3.5 GM/DL (3.2-5.2); ALT/SGPT 38 U/L (12-78); BILIRUBIN,DIRECT < 0.1 MG/DL (0.0-0.2); BILIRUBIN,TOTAL 0.3 MG/DL (0.2-1.0); LIPASE 119 U/L (73-393); TOTAL PROTEIN 6.6 GM/DL (6.4-8.2)
--- NOTE | 2021-03-22 16:28 | REP ---
INDICATION: sev bilat pelvic pain COMPARISON: None. TECHNIQUE: Transabdominal pelvic ultrasound followed by transvaginal examination for better evaluation of the endometrium and adnexa. FINDINGS: Bladder is unremarkable and measures 7.6 x 3.8 x 6.5 cm. Patient is noted to be status post total hysterectomy. No residual uterine tissue, pelvic mass or fluid appreciated. IMPRESSION: Prior hysterectomy. No obvious abnormality. <Electronically signed by Ole Dodd > 03/22/21 [id number]
[2021-03-22] MEDS ORDERED: BUPIVACAINE HCL 0.25% 10ML VIAL SC ONE (16:40)
[2021-03-22] MEDS ORDERED: oxyBUTYnin 5 MG TAB PO ONE (17:25)
--- NOTE | 2021-03-22 17:55 | CR.PDOC ---
General Date of Consultation: Mar 22, 2021 Consultation REASON FOR CONSULTATION/CHIEF COMPLAINT: Pelvic pain, vaginal pain. HISTORY OF PRESENT ILLNESS: 65-year-old G2, P2 female presents with 2 weeks of intense burning in the vaginal area. Pain is constant and severe. She presents to the emergency department today by ambulance. This is her fourth trip to the emergency room over the last 2 weeks. She also complains of spasms of her bladder and dull lower pelvic pain. She had a biopsy of the vulva done in the office which returned nonspecific inflammation. Lidocaine jelly that was ordered at that time is provided no relief. She is also tried vaginal estrogen cream with no relief. The ER is prescribed her both Percocet and Lyrica to help with pain. She had a CT the abdomen pelvis, pelvic ultrasound, and an MRI of her lower spine. She has appointment with urology on Friday for evaluation of possible interstitial cystitis. ALLERGIES: Please see below. HOME MEDICATIONS: Please see below. PAST MEDICAL HISTORY: 1. Chronic pelvic pain status post hysterectomy. 2. Current smoker. PAST SURGICAL HISTORY: 1. Hysterectomy with bilateral salpingo-oophorectomy 2016 2. Ear surgery FAMILY HISTORY: Noncontributory SOCIAL HISTORY: Employment: None Tobacco use: Yes REVIEW OF SYSTEMS: Negative except was already been described PHYSICAL EXAMINATION: VITAL SIGNS: Please see below. GENERAL APPEARANCE: Appears mildly uncomfortable. HEENT: NCAT. RESPIRATORY: CTA. CARDIOVASCULAR: RRR. ABDOMEN: Nontender soft nondistended normal bowel sounds. EXTREMITIES: Nontender Pelvic exam: Mild vulvovaginal atrophy otherwise normal. LABORATORY DATA: Please see below. 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 1. Plan oral estrogen 1 mg daily. 2. Plan oxybutynin 5 mg orally twice daily 3. Continue Lyrica, and Percocet as ordered. 4. Avoid topical medications 5. Keep appointment with urology for possible cystoscopy as evaluation for in terstitial cystitis. 6. Area injected with 15 cc of 0.25% Marcaine solution. Patient had immediate r elief of vulvar pain. 7. Written consent obtained for vulvar injection. Vital Signs/I&O Vital Signs Date Time Temp Pulse Resp B/P (MAP) Pulse Ox O2 Delivery O2 Flow Rate FiO2 03/22/21 13:38 96.8 81 17 114/67 (83) 97 Room Air Laboratory Data Labs 24H Laboratory Tests 2 03/22/21 14:46: Immature Granulocyte % (Auto) 0.5, Neutrophils (%) (Auto) 78.4H, Lymphocytes (%) (Auto) 14.5L, Monocytes (%) (Auto) 5.5, Eosinophils (%) (Auto) 0.5, Basophils (%) (Auto) 0.6, Neutrophils # (Auto) 7.7, Lymphocytes # (Auto) 1.4L, Monocytes # (Auto) 0.5, Eosinophils # (Auto) 0.1, Basophils # (Auto) 0.1, Nucleated Red Blood Cells % (auto) 0.0, Urine Color YELLOW, Urine Appearance CLEAR, Urine pH 6.0, Urine Specific [place] 1.012, Urine Protein NEGATIVE, Urine Glucose (UA) NEGATIVE, Urine Ketones NEGATIVE, Urine Blood NEGATIVE, Urine Nitrite NEGATIVE, Urine Bilirubin NEGATIVE, Urine Urobilinogen 0.2, Urine Leukocyte Esterase 2+H, Urine WBC (Auto) 7H, Urine RBC (Auto) 2, Urine Hyaline Casts (Auto) 0, Urine Bacteria (Auto) NEGATIVE, Urine Squamous Epithelial Cells 1, Urine Sperm (Auto) , Total Bilirubin 0.3, Direct Bilirubin < 0.1, Aspartate Amino Transf (AST/SGOT) 22, Alanine Aminotransferase (ALT/SGPT) 38, Alkaline Phosphatase 79, Total Protein 6.6, Albumin 3.5, Albumin/Globulin Ratio 1.1L, Lipase 119 03/22/21 14:56: POC Glucose (Misc Panel) 112H, POC Sodium (Misc Panel) 136, POC Potassium (Misc Panel) 4.1, POC Chloride (Misc Panel) 102, POC Total CO2 (Misc Panel) 23.0, POC Blood Urea Nitrogen (Misc Panel 18, POC Ionized Calcium (Misc Panel) 4.9, POC Creatinine (Misc Panel) 0.9, POC Hematocrit (Misc Panel) 45.0 CBC/BMP Laboratory Tests 03/22/21 14:46 Microbiology Microbiology 03/22/21 Urine Culture, Received Pending Allergies Coded Allergies: gabapentin (Verified Allergy, Intermediate, TACHYCARDIC, 04/10/19) cyclobenzaprine (Verified Allergy, Mild, TACHYCARDIA, 04/10/19) Home Medications Scheduled Buspirone HCl (Buspirone HCl) 5 Mg Tablet, 5 MG PO DAILY, (Reported) Docusate Sodium (Colace) 100 Mg Capsule, 1 CAP PO BID for 30 Days, #60 Fluticasone Propionate (Fluticasone Propionate) 50 Mcg/Act Spr, 2 SPRAY NARES DAILY for 30 Days, #1 (Reported) Levocetirizine Dihydrochloride (Xyzal) 5 Mg Tab, 5 MG PO DAILY for 30 Days, #30 (Reported) Lidocaine (Aspercreme) 4% Adh..patch, 1 PATCH TOP DAILY, (Reported) Sertraline Hcl (Zoloft) 100 Mg Tab, 200 MG PO DAILY for 30 Days, #30 (Reported) Scheduled PRN Ibuprofen (Ibuprofen) 800 Mg Tablet, 1 TAB PO Q6HP PRN for pain, (Reported) Polyethylene Glycol 3350 (Miralax) 119 Gm Powder, 17 GM PO DAILY PRN for CONSTIPATION, #1 dilute in 8 ounces of water or juice Miscellaneous Medications Oxycodone HCl/Acetaminophen (Oxycodone-Acetaminophen 5-325) 1 Each Tablet, (Reported) Pregabalin (Pregabalin) 75 Mg Capsule, (Reported) Sulfamethoxazole/Trimethoprim (Sulfamethoxazole-Tmp Ds Tablet) 1 Each Tablet, (Reported) NICOLE TRIPP MD Mar 22, 2021 17:55
[2021-03-22] MEDS ORDERED: FLEET ENEMA PR ONE (18:30)
[2021-03-22] MEDS ORDERED: ESTR1TAB3 PO (18:43)
[2021-03-22] MEDS ORDERED: OXYB5TAB10 PO (18:43)
[2021-03-22] MEDS ORDERED: RA M1.74 PO (18:43)
[2021-03-22] MEDS ORDERED: MIRA3350 PO (18:43)
[2021-03-22 19:07] VITALS: BP 118/69
== END 2021-03-22 19:17 | disposition home or self-care (01) ==
LOC: M ED 13:16
DX: N94.819 Vulvodynia, unspecified (principal); R10.2 Pelvic and perineal pain; Z79.899 Other long term (current) drug therapy; Z88.8 Allergy status to other drugs, medicaments and biological substances
CPT/HCPCS: 76830; 76856; 80047; 80076; 81001; 83690; 85025; 87086; 96374; 99284; J1885

== ENCOUNTER → 2021-08-02 | Outpatient (CLI) | payer OTHER ==
[~2021-08-02] MED LIST changes: +BACTDSTA; +ESTR1TAB3 PO; +OXYB5TAB10 PO; +OXYC1TAB23; +PREG75CA2; +RA M1.74 PO; -estradioL 1 MG TAB PO SCH
== END ==
LOC: M RAD 13:37
PROVIDERS: ATTEND Nurse Practitioner Family
DX: Z87.891 Personal history of nicotine dependence (principal)

== ENCOUNTER → 2021-08-23 | Outpatient (CLI) | payer OTHER ==
[2021-08-23 11:26] LABS: BASO # 0.1 10^3/uL (0.0-0.2); BASO % 0.7 % (0.0-1.0); EOS # 0.2 10^3/uL (0.0-0.5); EOS % 2.3 % (0.0-3.0); HEMATOCRIT 47.2 % (36.0-47.0); HEMOGLOBIN 15.6 g/dl (12.0-15.5); LYMPH # 2.2 10^3/uL (1.5-5.0); LYMPH % 25.6 % (24.0-44.0); MEAN CORPUSCULAR HEMOGLOBIN 29.8 pg (27.0-33.0); MEAN CORPUSCULAR HGB CONC 33.1 g/dl (32.0-36.5); MEAN CORPUSCULAR VOLUME 90.1 fl (80.0-96.0); MONO # 0.6 10^3/uL (0.0-0.8); MONO % 7.1 % (2.0-8.0); NEUTROPHILS # 5.5 10^3/uL (1.5-8.5); NEUTROPHILS % 63.8 % (36.0-66.0); PLATELET COUNT, AUTOMATED 269 10^3/uL (150-450); RED BLOOD COUNT 5.24 10^6/uL (4.00-5.40); WHITE BLOOD COUNT 8.7 10^3/uL (4.0-10.0)
[2021-08-23 12:22] LABS: ALBUMIN 3.8 GM/DL (3.2-5.2); ALT/SGPT 37 U/L (12-78); BILIRUBIN,TOTAL 0.3 MG/DL (0.2-1.0); BLOOD UREA NITROGEN 14 MG/DL (7-18); CALCIUM LEVEL 9.2 MG/DL (8.8-10.2); CARBON DIOXIDE LEVEL 32 MEQ/L (21-32); CHLORIDE LEVEL 102 MEQ/L (98-107); CHOLESTEROL LEVEL 214 MG/DL (<200); CHOLESTEROL RISK RATIO 2.743 (<5); CREATININE FOR GFR 0.85 MG/DL (0.55-1.30); GLOMERULAR FILTRATION RATE > 60.0 (>45); GLUCOSE, FASTING 96 MG/DL (70-100); HDL CHOLESTEROL 78 MG/DL (>40); LDL CHOLESTEROL 121 MG/DL (<100); NON-HDL-C 136 MG/DL; POTASSIUM SERUM 4.4 MEQ/L (3.5-5.1); SODIUM LEVEL 139 MEQ/L (136-145); THYROID STIMULATING HORMONE 0.897 uIU/ML (0.358-3.740); TOTAL 25(OH) VITAMIN D 18.4 NG/ML (30.0-100.0); TOTAL PROTEIN 7.3 GM/DL (6.4-8.2); TRIGLYCERIDES LEVEL 76 MG/DL (<150)
== END ==
LOC: M LAB 10:41
PROVIDERS: ATTEND Nurse Practitioner Family
DX: E66.3 Overweight (principal)

== ENCOUNTER → 2021-10-19 | Outpatient (CLI) | payer OTHER | LOC: M LAB 15:57 | PROVIDERS: ATTEND Nurse Practitioner Family | DX: A28.1 Cat-scratch disease (principal) ==

== ENCOUNTER → 2022-05-02 | Outpatient (CLI) | payer OTHER | LOC: M PLAIMG 09:51 | DX: R90.82 White matter disease, unspecified (principal); M43.02 Spondylolysis, cervical region; M50.222 Other cervical disc displacement at C5-C6 level; G44.52 New daily persistent headache (NDPH); R20.0 Anesthesia of skin; R20.2 Paresthesia of skin ==

== ENCOUNTER 2022-05-19 13:06 | Emergency (ER) | payer OTHER ==
[~2022-05-19] VITALS: Ht 162.6 cm; Wt 101.4 kg
[2022-05-19] MEDS ORDERED: HYDR50TA70 PO (13:18)
[2022-05-19] MEDS ORDERED: COLA100C5 PO (13:18)
[2022-05-19] MEDS ORDERED: DULO1CAP6 PO (13:18)
[2022-05-19] MEDS ORDERED: CRAN400C PO (13:18)
[2022-05-19] MEDS ORDERED: IBUPROFEN 800 MG TAB PO ONE (14:05)
[2022-05-19] MEDS ORDERED: BENZONATATE 100MG CAPSULE PO ONE (14:05)
[2022-05-19] MEDS ORDERED: AMOX875T2 PO (15:36)
[2022-05-19 15:50] VITALS: BP 121/69
== END 2022-05-19 15:52 | disposition home or self-care (01) ==
LOC: M ED 13:06
DX: J06.9 Acute upper respiratory infection, unspecified (principal); B34.3 Parvovirus infection, unspecified; H72.2X1 Other marginal perforations of tympanic membrane, right ear; G89.29 Other chronic pain; M54.9 Dorsalgia, unspecified; F32.A Depression, unspecified; F41.9 Anxiety disorder, unspecified; M99.05 Segmental and somatic dysfunction of pelvic region; F17.200 Nicotine dependence, unspecified, uncomplicated; Z79.899 Other long term (current) drug therapy

== ENCOUNTER → 2022-05-24 | Outpatient (CLI) | payer OTHER ==
[~2022-05-24] MED LIST changes: +AMOX875T2 PO; +CRAN400C PO; +DULO1CAP6 PO
== END ==
LOC: M PLARAD 13:11
PROVIDERS: ATTEND Nurse Practitioner Family
DX: M54.16 Radiculopathy, lumbar region (principal); M99.63 Osseous and subluxation stenosis of intervertebral foramina of lumbar region; M99.64 Osseous and subluxation stenosis of intervertebral foramina of sacral region

== ENCOUNTER → 2022-06-27 | Outpatient (CLI) | payer OTHER | LOC: M RAD 13:41 | PROVIDERS: ATTEND Nurse Practitioner Family | DX: J32.9 Chronic sinusitis, unspecified (principal); R53.83 Other fatigue; H92.01 Otalgia, right ear; G89.29 Other chronic pain; R51.9 Headache, unspecified ==

== ENCOUNTER → 2022-07-11 | Outpatient (CLI) | payer OTHER | LOC: M LAB 15:59 | PROVIDERS: ATTEND Nurse Practitioner Family | DX: E55.9 Vitamin D deficiency, unspecified (principal) ==

== ENCOUNTER → 2022-07-19 | Outpatient (CLI) | payer OTHER | LOC: M PLARAD 13:45 | PROVIDERS: ATTEND Nurse Practitioner Family | DX: R10.2 Pelvic and perineal pain (principal) ==

== ENCOUNTER 2022-08-05 17:00 | Emergency (ER) | payer OTHER ==
[~2022-08-05] VITALS: Ht 165.1 cm; Wt 95.9 kg
[2022-08-05 17:00] VITALS: BP 122/60
[2022-08-05 18:33] LABS: BASO # 0.1 10^3/uL (0.0-0.2); BASO % 0.7 % (0.0-1.0); EOS # 0.2 10^3/uL (0.0-0.5); EOS % 1.9 % (0.0-3.0); HEMATOCRIT 46.8 % (36.0-47.0); HEMOGLOBIN 15.2 g/dl (12.0-15.5); LYMPH # 2.6 10^3/uL (1.5-5.0); LYMPH % 31.2 % (24.0-44.0); MEAN CORPUSCULAR HGB CONC 32.5 g/dl (32.0-36.5); MEAN CORPUSCULAR VOLUME 92.5 fl (80.0-96.0); MONO # 0.5 10^3/uL (0.0-0.8); MONO % 6.5 % (2.0-8.0); NEUTROPHILS # 4.9 10^3/uL (1.5-8.5); NEUTROPHILS % 59.3 % (36.0-66.0); PLATELET COUNT, AUTOMATED 235 10^3/uL (150-450); RED BLOOD COUNT 5.06 10^6/uL (4.00-5.40); WHITE BLOOD COUNT 8.3 10^3/uL (4.0-10.0)
[2022-08-05 18:43] LABS: LIPASE 50 U/L (12-53)
[2022-08-05 18:49] LABS: ALBUMIN 3.6 G/DL (3.2-5.2); ALKALINE PHOSPHATASE 84 U/L (46-116); ALT/SGPT 28 U/L (7.0-40); AST/SGOT 25 U/L (<34); BILIRUBIN,DIRECT < 0.1 MG/DL (<0.4); BILIRUBIN,TOTAL 0.3 MG/DL (0.3-1.2); BLOOD UREA NITROGEN 11 MG/DL (9-23); CALCIUM LEVEL 9.4 MG/DL (8.3-10.6); CARBON DIOXIDE LEVEL 30 MMOL/L (20-31); CHLORIDE LEVEL 103 MMOL/L (98-107); CREATININE FOR GFR 0.75 MG/DL (0.55-1.30); GLOMERULAR FILTRATION RATE > 60.0 (>45); GLUCOSE, FASTING 139 MG/DL (74-106); SODIUM LEVEL 138 MMOL/L (136-145); TOTAL PROTEIN 6.3 G/DL (5.7-8.2)
== END 2022-08-05 20:08 | disposition left against medical advice (07) ==
LOC: M ED 17:00
DX: Z53.21 Procedure and treatment not carried out due to patient leaving prior to being seen by health care provider (principal)

== ENCOUNTER → 2022-09-10 | Outpatient (CLI) | payer OTHER | LOC: M RAD 14:29 | PROVIDERS: ATTEND Nurse Practitioner Family | DX: F17.210 Nicotine dependence, cigarettes, uncomplicated (principal) ==

== ENCOUNTER → 2022-12-25 | Outpatient (CLI) | payer MEDICARE, MEDICAID ==
[~2022-12-25] MED LIST changes: +FLUT50SP17 NARES; -FLUTISP NARES
== END ==
LOC: M RAD 15:30
PROVIDERS: ATTEND Nurse Practitioner Family
DX: J84.10 Pulmonary fibrosis, unspecified (principal)

== ENCOUNTER → 2023-05-30 | Outpatient (CLI) | payer OTHER, MEDICAID ==
[~2023-05-30] MED LIST changes: -FLUT50SP17 NARES; +FLUTISP NARES; -OXYB5TAB10 PO; +OXYB5TAB11 PO; -PREG75CA2; +PREG75CA3
[2023-05-30 15:45] LABS: BASO # 0.1 10^3/uL (0.0-0.2); BASO % 0.8 % (0.0-1.0); EOS # 0.2 10^3/uL (0.0-0.5); EOS % 2.2 % (0.0-3.0); HEMATOCRIT 45.5 % (36.0-47.0); HEMOGLOBIN 14.8 g/dl (12.0-15.5); LYMPH # 2.3 10^3/uL (1.5-5.0); LYMPH % 25.5 % (24.0-44.0); MEAN CORPUSCULAR HEMOGLOBIN 30.3 pg (27.0-33.0); MEAN CORPUSCULAR HGB CONC 32.5 g/dl (32.0-36.5); MEAN CORPUSCULAR VOLUME 93.2 fl (80.0-96.0); MONO # 0.7 10^3/uL (0.0-0.8); MONO % 7.7 % (2.0-8.0); NEUTROPHILS # 5.8 10^3/uL (1.5-8.5); NEUTROPHILS % 63.6 % (36.0-66.0); PLATELET COUNT, AUTOMATED 238 10^3/uL (150-450); RED BLOOD COUNT 4.88 10^6/uL (4.00-5.40); WHITE BLOOD COUNT 9.2 10^3/uL (4.0-10.0)
[2023-05-30 16:18] LABS: ALBUMIN 3.6 G/DL (3.2-5.2); ALKALINE PHOSPHATASE 95 U/L (46-116); ALT/SGPT 33 U/L (7.0-40); AST/SGOT 21 U/L (<34); BILIRUBIN,TOTAL 0.4 MG/DL (0.3-1.2); BLOOD UREA NITROGEN 16 MG/DL (9-23); CALCIUM LEVEL 9.8 MG/DL (8.3-10.6); CARBON DIOXIDE LEVEL 30 MMOL/L (20-31); CHLORIDE LEVEL 103 MMOL/L (98-107); CHOLESTEROL LEVEL 179 MG/DL (<200); CHOLESTEROL RISK RATIO 3.85 (<5); GLOMERULAR FILTRATION RATE > 60.0 (>45); GLUCOSE, FASTING 87 MG/DL (74-106); HDL CHOLESTEROL 46.4 MG/DL (>40); LDL CHOLESTEROL 96.8 MG/DL (<100); NON-HDL-C 132.6 MG/DL; POTASSIUM SERUM 4.2 MMOL/L (3.5-5.1); SODIUM LEVEL 138 MMOL/L (136-145); THYROID STIMULATING HORMONE 1.251 uIU/ML (0.55-4.78); TOTAL PROTEIN 6.8 G/DL (5.7-8.2); TRIGLYCERIDES LEVEL 179 MG/DL (<150)
== END ==
LOC: M LAB 15:17
PROVIDERS: ATTEND Nurse Practitioner Family
DX: R60.9 Edema, unspecified (principal); Z13.220 Encounter for screening for lipoid disorders; Z79.899 Other long term (current) drug therapy

== ENCOUNTER 2023-07-24 18:36 | Emergency (ER) | payer OTHER, MEDICAID ==
[~2023-07-24] VITALS: Ht 165.1 cm; Wt 93.6 kg
[2023-07-24 18:58] VITALS: TEMP 97.7
[2023-07-24 19:31] LABS: BASO % 0.5 % (0.0-1.0); EOS # 0.3 10^3/uL (0.0-0.5); EOS % 3.9 % (0.0-3.0); HEMATOCRIT 44.8 % (36.0-47.0); LYMPH # 1.9 10^3/uL (1.5-5.0); LYMPH % 23.6 % (24.0-44.0); MEAN CORPUSCULAR HEMOGLOBIN 31.3 pg (27.0-33.0); MEAN CORPUSCULAR HGB CONC 33.5 g/dl (32.0-36.5); MEAN CORPUSCULAR VOLUME 93.3 fl (80.0-96.0); MONO # 0.7 10^3/uL (0.0-0.8); MONO % 8.6 % (2.0-8.0); NEUTROPHILS % 63.1 % (36.0-66.0); PLATELET COUNT, AUTOMATED 215 10^3/uL (150-450)
[2023-07-24] MEDS: KETOROLAC 30 MG/ML 1ML VIAL IV ONE (20:06)
[2023-07-24 21:51] VITALS: O2SAT 95
[2023-07-24 22:02] VITALS: BP 113/65
== END 2023-07-24 22:49 | disposition home or self-care (01) ==
LOC: M ED 18:36 → EDBD 18:36 → M ED 22:49
DX: R10.2 Pelvic and perineal pain (principal); J44.9 Chronic obstructive pulmonary disease, unspecified; F32.9 Major depressive disorder, single episode, unspecified; F41.9 Anxiety disorder, unspecified; Z79.899 Other long term (current) drug therapy
CPT/HCPCS: 74176; 80047; 81001; 85025; 96374; 99285; J1885

== ENCOUNTER 2023-08-11 09:28 | Emergency (ER) | payer OTHER, MEDICAID ==
[~2023-08-11] VITALS: Ht 165.1 cm; Wt 92.9 kg
[~2023-08-11 09:28] MED LIST changes: -OXYB5TAB11 PO; +OXYB5TAB14 PO
[2023-08-11] MEDS: CYCLOBENZAPRINE 10MG TABLET PO ONE (11:58)
[2023-08-11] MEDS: KETOROLAC 30 MG/ML 1ML VIAL IV ONE (11:58)
[2023-08-11 12:15] LABS: BASO # 0.1 10^3/uL (0.0-0.2); BASO % 0.9 % (0.0-1.0); EOS # 0.2 10^3/uL (0.0-0.5); EOS % 2.1 % (0.0-3.0); HEMATOCRIT 47.7 % (36.0-47.0); HEMOGLOBIN 15.6 g/dl (12.0-15.5); LYMPH # 2.2 10^3/uL (1.5-5.0); LYMPH % 30.1 % (24.0-44.0); MEAN CORPUSCULAR HEMOGLOBIN 30.5 pg (27.0-33.0); MEAN CORPUSCULAR HGB CONC 32.7 g/dl (32.0-36.5); MEAN CORPUSCULAR VOLUME 93.2 fl (80.0-96.0); MONO # 0.6 10^3/uL (0.0-0.8); MONO % 7.7 % (2.0-8.0); NEUTROPHILS # 4.4 10^3/uL (1.5-8.5); NEUTROPHILS % 58.9 % (36.0-66.0); PLATELET COUNT, AUTOMATED 214 10^3/uL (150-450); RED BLOOD COUNT 5.12 10^6/uL (4.00-5.40); WHITE BLOOD COUNT 7.5 10^3/uL (4.0-10.0)
[2023-08-11 12:21] LABS: ERYTHROCYTE SEDIMENTATION RATE 7 mm/hr (0-30)
[2023-08-11 12:37] LABS: C REACTIVE PROTEIN QUANTITATIV < 0.40 MG/DL (<1.0)
[2023-08-11 12:38] LABS: ALBUMIN 3.5 G/DL (3.2-5.2); ALKALINE PHOSPHATASE 68 U/L (46-116); ALT/SGPT 26 U/L (7.0-40); AST/SGOT 21 U/L (<34); BILIRUBIN,DIRECT 0.1 MG/DL (<0.4); BILIRUBIN,TOTAL 0.5 MG/DL (0.3-1.2); BLOOD UREA NITROGEN 13 MG/DL (9-23); CALCIUM LEVEL 9.7 MG/DL (8.3-10.6); CARBON DIOXIDE LEVEL 32 MMOL/L (20-31); CHLORIDE LEVEL 108 MMOL/L (98-107); CREATININE FOR GFR 0.73 MG/DL (0.55-1.30); GLOMERULAR FILTRATION RATE > 60.0 (>45); GLUCOSE, FASTING 93 MG/DL (74-106); POTASSIUM SERUM 4.8 MMOL/L (3.5-5.1); SODIUM LEVEL 139 MMOL/L (136-145); TOTAL PROTEIN 6.4 G/DL (5.7-8.2)
[2023-08-11] MEDS ORDERED: CYCL-707 PO (13:36)
[2023-08-11 13:58] VITALS: BP 127/67; TEMP 97.6; O2SAT 98
== END 2023-08-11 13:56 | disposition home or self-care (01) ==
LOC: M ED 09:28
DX: J34.89 Other specified disorders of nose and nasal sinuses (principal); M54.2 Cervicalgia; S33.5XXA Sprain of ligaments of lumbar spine, initial encounter; J44.9 Chronic obstructive pulmonary disease, unspecified; F17.210 Nicotine dependence, cigarettes, uncomplicated; Y92.9 Unspecified place or not applicable; Y93.9 Activity, unspecified; Y99.9 Unspecified external cause status; Z79.2 Long term (current) use of antibiotics; Z79.899 Other long term (current) drug therapy
CPT/HCPCS: 70450; 70486; 72125; 72131; 80048; 80076; 83605; 85025; 85652; 86140; 87040; 96374; 99284; J1885

== ENCOUNTER 2023-08-25 18:10 | Emergency (ER) | payer OTHER, MEDICAID ==
[~2023-08-25 18:10] MED LIST changes: +CYCL-707 PO
[2023-08-25] MEDS: KETOROLAC 60MG 2ML VIAL IM ONE (22:54)
[2023-08-25] MEDS: ACETAMINOPH W/CODEINE #3 TAB UD PO ONE ×2 (22:55→23:45)
[2023-08-25 23:51] VITALS: BP 126/66; TEMP 97.6; O2SAT 96
== END 2023-08-25 23:58 | disposition home or self-care (01) ==
LOC: EDBD 18:10 → M ED 18:10
DX: M54.2 Cervicalgia (principal); M54.50 Low back pain, unspecified; G89.29 Other chronic pain; J44.9 Chronic obstructive pulmonary disease, unspecified; F17.200 Nicotine dependence, unspecified, uncomplicated; Z79.899 Other long term (current) drug therapy
CPT/HCPCS: 96372; 99284; J1885

== ENCOUNTER → 2023-08-27 | Outpatient (CLI) | payer OTHER, MEDICAID | LOC: M RAD 15:54 | PROVIDERS: ATTEND Nurse Practitioner | DX: G44.89 Other headache syndrome (principal) ==

== ENCOUNTER → 2023-09-05 | Outpatient (CLI) | payer OTHER, MEDICAID | LOC: M PLAIMG 14:46 | PROVIDERS: ATTEND Nurse Practitioner | DX: M50.322 Other cervical disc degeneration at C5-C6 level (principal); M48.02 Spinal stenosis, cervical region ==

== ENCOUNTER → 2023-11-26 | Outpatient (CLI) | payer OTHER, MEDICAID ==
[~2023-11-26] MED LIST changes: -CRAN400C PO; +CRANBERRY400 MG PO; +TIZA4CAP3 PO; -TIZA4CAP6 PO
== END ==
LOC: M RAD 14:38
PROVIDERS: ATTEND Nurse Practitioner
DX: T74.11XA Adult physical abuse, confirmed, initial encounter (principal)

== ENCOUNTER → 2024-01-15 | Outpatient (CLI) | payer OTHER, MEDICAID | LOC: M WHC 14:52 | PROVIDERS: ATTEND Nurse Practitioner | DX: Z12.31 Encounter for screening mammogram for malignant neoplasm of breast (principal) ==

== ENCOUNTER → 2024-01-27 | Outpatient (CLI) | payer OTHER, MEDICAID ==
[2024-01-27 11:22] LABS: BASO # 0.1 10^3/uL (0.0-0.2); BASO % 0.7 % (0.0-1.0); EOS # 0.2 10^3/uL (0.0-0.5); EOS % 1.9 % (0.0-3.0); HEMATOCRIT 46.5 % (36.0-47.0); HEMOGLOBIN 15.2 g/dl (12.0-15.5); LYMPH # 2.1 10^3/uL (1.5-5.0); LYMPH % 26.1 % (24.0-44.0); MEAN CORPUSCULAR HEMOGLOBIN 30.6 pg (27.0-33.0); MEAN CORPUSCULAR HGB CONC 32.7 g/dl (32.0-36.5); MEAN CORPUSCULAR VOLUME 93.6 fl (80.0-96.0); MONO # 0.6 10^3/uL (0.0-0.8); MONO % 7.6 % (2.0-8.0); NEUTROPHILS # 5.1 10^3/uL (1.5-8.5); NEUTROPHILS % 63.5 % (36.0-66.0); PLATELET COUNT, AUTOMATED 241 10^3/uL (150-450); RED BLOOD COUNT 4.97 10^6/uL (4.00-5.40)
[2024-01-27 11:50] LABS: CREATININE, URINE 33.8 MG/DL; MALB URINE SIEMENS < 3.0 MG/L; MAU/CREAT RATIO 8.8 MCG/MG (0.0-30.0)
[2024-01-27 11:51] LABS: ALBUMIN 3.8 G/DL (3.2-5.2); ALKALINE PHOSPHATASE 96 U/L (46-116); ALT/SGPT 27 U/L (7.0-40); AST/SGOT 18 U/L (<34); BILIRUBIN,TOTAL 0.4 MG/DL (0.3-1.2); BLOOD UREA NITROGEN 14 MG/DL (9-23); CALCIUM LEVEL 9.6 MG/DL (8.3-10.6); CARBON DIOXIDE LEVEL 33 MMOL/L (20-31); CHLORIDE LEVEL 104 MMOL/L (98-107); CHOLESTEROL LEVEL 186 MG/DL (<200); CHOLESTEROL RISK RATIO 2.97 (<5); CREATININE FOR GFR 0.75 MG/DL (0.55-1.30); GLOMERULAR FILTRATION RATE > 60.0 (>45); GLUCOSE, FASTING 62 MG/DL (74-106); HDL CHOLESTEROL 62.5 MG/DL (>40); LDL CHOLESTEROL 105.5 MG/DL (<100); NON-HDL-C 123.5 MG/DL; POTASSIUM SERUM 4.4 MMOL/L (3.5-5.1); SODIUM LEVEL 136 MMOL/L (136-145); TOTAL PROTEIN 6.8 G/DL (5.7-8.2); TRIGLYCERIDES LEVEL 90 MG/DL (<150)
[2024-01-27 11:55] LABS: THYROID STIMULATING HORMONE 0.793 uIU/ML (0.55-4.78)
== END ==
LOC: M LAB 10:43
PROVIDERS: ATTEND Nurse Practitioner
DX: E55.9 Vitamin D deficiency, unspecified (principal); E66.3 Overweight; M81.0 Age-related osteoporosis without current pathological fracture; G89.4 Chronic pain syndrome; Z79.899 Other long term (current) drug therapy

== ENCOUNTER → 2024-01-28 | Outpatient (CLI) | payer OTHER, MEDICAID | LOC: M RAD 16:50 | PROVIDERS: ATTEND Nurse Practitioner | DX: Z12.2 Encounter for screening for malignant neoplasm of respiratory organs (principal); F17.210 Nicotine dependence, cigarettes, uncomplicated ==

== ENCOUNTER → 2024-02-20 | Outpatient (CLI) | payer OTHER, MEDICAID ==
[2024-02-20 15:57] LABS: BASO # 0.1 10^3/uL (0.0-0.2); EOS # 0.2 10^3/uL (0.0-0.5); EOS % 2.4 % (0.0-3.0); HEMATOCRIT 42.1 % (36.0-47.0); HEMOGLOBIN 14.1 g/dl (12.0-15.5); LYMPH # 2.6 10^3/uL (1.5-5.0); LYMPH % 29.2 % (24.0-44.0); MEAN CORPUSCULAR HEMOGLOBIN 30.9 pg (27.0-33.0); MEAN CORPUSCULAR HGB CONC 33.5 g/dl (32.0-36.5); MEAN CORPUSCULAR VOLUME 92.3 fl (80.0-96.0); MONO # 0.8 10^3/uL (0.0-0.8); MONO % 8.5 % (2.0-8.0); NEUTROPHILS # 5.2 10^3/uL (1.5-8.5); NEUTROPHILS % 58.6 % (36.0-66.0); PLATELET COUNT, AUTOMATED 241 10^3/uL (150-450); RED BLOOD COUNT 4.56 10^6/uL (4.00-5.40); WHITE BLOOD COUNT 8.9 10^3/uL (4.0-10.0)
[2024-02-20 16:14] LABS: ALBUMIN 3.4 G/DL (3.2-5.2); ALKALINE PHOSPHATASE 90 U/L (46-116); ALT/SGPT 24 U/L (7.0-40); AST/SGOT 19 U/L (<34); BILIRUBIN,TOTAL 0.4 MG/DL (0.3-1.2); BLOOD UREA NITROGEN 15 MG/DL (9-23); CALCIUM LEVEL 9.9 MG/DL (8.3-10.6); CARBON DIOXIDE LEVEL 29 MMOL/L (20-31); CHLORIDE LEVEL 109 MMOL/L (98-107); CREATININE FOR GFR 0.68 MG/DL (0.55-1.30); GLOMERULAR FILTRATION RATE > 60.0 (>45); GLUCOSE, FASTING 99 MG/DL (74-106); POTASSIUM SERUM 3.9 MMOL/L (3.5-5.1); SODIUM LEVEL 139 MMOL/L (136-145); TOTAL PROTEIN 6.5 G/DL (5.7-8.2)
[2024-02-20 16:24] LABS: FOLATE 23.29 NG/ML (>5.4)
[2024-02-20 16:39] LABS: HEMOGLOBIN A1c 5.1 % (4.0-6.0)
[2024-02-23 13:07] LABS: SSA SJOGRENS A <1.0 NEG AI (<1.0 NEG); SSB SJOGRENS B <1.0 NEG AI (<1.0 NEG)
[2024-02-23 14:22] LABS: ANA SCREEN, IFA NEGATIVE (NEGATIVE)
[2024-02-23 17:51] LABS: ANGIOTENSIN 1 CONVERTING ENZYM 19 U/L (9-67)
[2024-02-23 23:37] LABS: CYCLIC CITRULLINATED PEPTIDE < 16 UNITS (<20)
[2024-02-25 01:07] LABS: IgG P18 AB NON-REACTIVE; IgG P23 AB NON-REACTIVE; IgG P28 AB NON-REACTIVE; IgG P30 AB NON-REACTIVE; IgG P39 AB NON-REACTIVE; IgG P41 AB NON-REACTIVE; IgG P45 AB NON-REACTIVE; IgG P58 AB NON-REACTIVE; IgG P66 AB NON-REACTIVE; IgG P93 AB NON-REACTIVE; IgM P23 AB NON-REACTIVE; IgM P39 AB NON-REACTIVE; IgM P41 AB NON-REACTIVE; LYME IgG WB INTERPRETATION NEGATIVE (NEGATIVE); LYME IgM WB INTERPRETATION NEGATIVE (NEGATIVE)
[2024-02-25 08:12] LABS: ARSENIC BLOOD 1 ug/L (0-9); LEAD BLOOD <1.0 ug/dL (0.0-3.4); MERCURY BLOOD <1.0 ug/L (0.0-14.9)
== END ==
LOC: M LAB 15:15
PROVIDERS: ATTEND Psychiatry & Neurology Neurology
DX: G62.9 Polyneuropathy, unspecified (principal); G25.79 Other drug induced movement disorders; R20.2 Paresthesia of skin; M54.16 Radiculopathy, lumbar region; Z79.899 Other long term (current) drug therapy

== ENCOUNTER → 2024-03-25 | Outpatient (CLI) | payer OTHER, MEDICAID ==
[2024-03-25 13:48] LABS: CHOLESTEROL RISK RATIO 3.45 (<5); HDL CHOLESTEROL 62.6 MG/DL (>40); LDL CHOLESTEROL 131.4 MG/DL (<100); NON-HDL-C 153.4 MG/DL
== END ==
LOC: M LAB 09:19
PROVIDERS: ATTEND Nurse Practitioner
DX: E78.2 Mixed hyperlipidemia (principal)

== ENCOUNTER → 2024-09-09 | Outpatient (CLI) | payer OTHER, MEDICAID ==
[2024-09-09 11:19] LABS: BASO # 0.1 10^3/uL (0.0-0.2); BASO % 0.6 % (0.0-1.0); EOS # 0.2 10^3/uL (0.0-0.5); EOS % 2.4 % (0.0-3.0); HEMATOCRIT 43.7 % (36.0-47.0); HEMOGLOBIN 14.3 g/dl (12.0-15.5); LYMPH # 1.9 10^3/uL (1.5-5.0); LYMPH % 20.1 % (24.0-44.0); MEAN CORPUSCULAR HEMOGLOBIN 29.6 pg (27.0-33.0); MEAN CORPUSCULAR HGB CONC 32.7 g/dl (32.0-36.5); MEAN CORPUSCULAR VOLUME 90.5 fl (80.0-96.0); MONO # 0.7 10^3/uL (0.0-0.8); MONO % 7.1 % (2.0-8.0); NEUTROPHILS # 6.7 10^3/uL (1.5-8.5); NEUTROPHILS % 69.5 % (36.0-66.0); PLATELET COUNT, AUTOMATED 220 10^3/uL (150-450); RED BLOOD COUNT 4.83 10^6/uL (4.00-5.40); WHITE BLOOD COUNT 9.6 10^3/uL (4.0-10.0)
[2024-09-09 11:54] LABS: ALBUMIN 3.5 G/DL (3.2-5.2); ALKALINE PHOSPHATASE 88 U/L (35-104); ALT/SGPT 29 U/L (7.0-40); AST/SGOT 27 U/L (<34); BILIRUBIN,TOTAL 0.4 MG/DL (0.3-1.2); BLOOD UREA NITROGEN 15 MG/DL (9-23); CALCIUM LEVEL 8.8 MG/DL (8.3-10.6); CARBON DIOXIDE LEVEL 29 MMOL/L (20-31); CHLORIDE LEVEL 103 MMOL/L (98-107); CHOLESTEROL LEVEL 204 MG/DL (<200); CHOLESTEROL RISK RATIO 3.32 (<5); CREATININE FOR GFR 0.72 MG/DL (0.55-1.30); GLOMERULAR FILTRATION RATE > 60.0 (>45); GLUCOSE, FASTING 89 MG/DL (74-106); HDL CHOLESTEROL 61.3 MG/DL (>40); LDL CHOLESTEROL 122.1 MG/DL (<100); NON-HDL-C 142.7 MG/DL; POTASSIUM SERUM 4.3 MMOL/L (3.5-5.1); SODIUM LEVEL 137 MMOL/L (136-145); TOTAL PROTEIN 6.6 G/DL (5.7-8.2); TRIGLYCERIDES LEVEL 103 MG/DL (<150)
[2024-09-09 11:58] LABS: THYROID STIMULATING HORMONE 0.815 uIU/ML (0.55-4.78)
== END ==
LOC: M LAB 10:06
PROVIDERS: ATTEND Nurse Practitioner Family
DX: E66.9 Obesity, unspecified (principal); E07.9 Disorder of thyroid, unspecified

== ENCOUNTER → 2024-10-25 | Outpatient (CLI) | payer OTHER, MEDICAID ==
[2024-10-25 12:25] LABS: ALBUMIN 3.7 G/DL (3.2-5.2); BILIRUBIN,TOTAL 0.4 MG/DL (0.3-1.2); CALCIUM LEVEL 9.5 MG/DL (8.3-10.6); CHOLESTEROL RISK RATIO 4.01 (<5); CREATININE FOR GFR 0.85 MG/DL (0.55-1.30); GLOMERULAR FILTRATION RATE 75.5 (>45); HDL CHOLESTEROL 45.8 MG/DL (>40); NON-HDL-C 138.2 MG/DL; POTASSIUM SERUM 4.3 MMOL/L (3.5-5.1); TOTAL PROTEIN 6.8 G/DL (5.7-8.2)
== END ==
LOC: M LAB 10:49
PROVIDERS: ATTEND Nurse Practitioner
DX: E78.49 Other hyperlipidemia (principal)

== ENCOUNTER → 2024-10-25 | Outpatient (CLI) | payer OTHER, MEDICAID ==
[2024-10-25 11:39] LABS: BASO # 0.1 10^3/uL (0.0-0.2); EOS # 0.2 10^3/uL (0.0-0.5); EOS % 1.9 % (0.0-3.0); HEMATOCRIT 45.7 % (36.0-47.0); HEMOGLOBIN 15.3 g/dl (12.0-15.5); LYMPH # 2.2 10^3/uL (1.5-5.0); LYMPH % 27.8 % (24.0-44.0); MEAN CORPUSCULAR HEMOGLOBIN 29.9 pg (27.0-33.0); MEAN CORPUSCULAR HGB CONC 33.5 g/dl (32.0-36.5); MEAN CORPUSCULAR VOLUME 89.4 fl (80.0-96.0); MONO # 0.6 10^3/uL (0.0-0.8); MONO % 7.4 % (2.0-8.0); NEUTROPHILS # 4.9 10^3/uL (1.5-8.5); NEUTROPHILS % 61.6 % (36.0-66.0); PLATELET COUNT, AUTOMATED 272 10^3/uL (150-450); RED BLOOD COUNT 5.11 10^6/uL (4.00-5.40); WHITE BLOOD COUNT 7.9 10^3/uL (4.0-10.0)
[2024-10-25 12:19] LABS: ALBUMIN 3.7 G/DL (3.2-5.2); BILIRUBIN,TOTAL 0.4 MG/DL (0.3-1.2); CALCIUM LEVEL 9.4 MG/DL (8.3-10.6); CHOLESTEROL RISK RATIO 4.08 (<5); CREATININE FOR GFR 0.83 MG/DL (0.55-1.30); GLOMERULAR FILTRATION RATE 77.7 (>45); HDL CHOLESTEROL 45.3 MG/DL (>40); LDL CHOLESTEROL 109.9 MG/DL (<100); NON-HDL-C 139.7 MG/DL; POTASSIUM SERUM 4.3 MMOL/L (3.5-5.1); TOTAL PROTEIN 6.8 G/DL (5.7-8.2)
[2024-10-25 12:44] LABS: HEMOGLOBIN A1c 5.2 % (4.0-6.0)
[2024-10-25 12:54] LABS: THYROID STIMULATING HORMONE 0.812 uIU/ML (0.55-4.78)
== END ==
LOC: M LAB 10:45
PROVIDERS: ATTEND Nurse Practitioner Family
DX: E66.9 Obesity, unspecified (principal); E07.9 Disorder of thyroid, unspecified; E78.00 Pure hypercholesterolemia, unspecified

== ENCOUNTER → 2024-12-30 | Outpatient (CLI) | payer OTHER, MEDICAID ==
[~2024-12-30] MED LIST changes: +LEVOTAB10 PO; +SERT-141 PO; +TIRZ5PEN3 SC
[2024-12-30 16:29] LABS: ALT/SGPT 23 U/L (7.0-40); AST/SGOT 25 U/L (<34); CALCIUM LEVEL 8.9 MG/DL (8.3-10.6); CARBON DIOXIDE LEVEL 32 MMOL/L (20-31); CHLORIDE LEVEL 104 MMOL/L (98-107); CREATININE FOR GFR 0.84 MG/DL (0.55-1.30); GLOMERULAR FILTRATION RATE 76.1 (>45); POTASSIUM SERUM 3.8 MMOL/L (3.5-5.1); SODIUM LEVEL 141 MMOL/L (136-145)
[2024-12-30 17:09] LABS: HEPATITIS C VIRUS ABY INDEX < 0.02 INDEX (<0.8)
== END ==
LOC: M LAB 15:34
PROVIDERS: ATTEND Nurse Practitioner
DX: R94.5 Abnormal results of liver function studies (principal)

== ENCOUNTER → 2024-12-30 | Outpatient (CLI) | payer OTHER, MEDICAID | LOC: M RAD 14:33 | PROVIDERS: ATTEND Nurse Practitioner Family | DX: I73.9 Peripheral vascular disease, unspecified (principal) ==

== ENCOUNTER → 2025-01-18 | Outpatient (CLI) | payer OTHER, MEDICAID | LOC: M WHC 13:04 | PROVIDERS: ATTEND Nurse Practitioner | DX: Z12.31 Encounter for screening mammogram for malignant neoplasm of breast (principal); M81.0 Age-related osteoporosis without current pathological fracture; R92.313 Mammographic fatty tissue density, bilateral breasts; M85.89 Other specified disorders of bone density and structure, multiple sites ==

== ENCOUNTER → 2025-02-03 | Outpatient (CLI) | payer OTHER, MEDICAID | LOC: M PLAIMG 10:15 | PROVIDERS: ATTEND Student in an Organized Health Care Education/Training Program | DX: M54.17 Radiculopathy, lumbosacral region (principal) ==

== ENCOUNTER → 2025-03-22 | Outpatient (CLI) | payer OTHER, MEDICAID ==
[2025-03-22 18:05] LABS: PLATELET COUNT, AUTOMATED 256 10^3/uL (150-450)
[2025-03-22 18:28] LABS: CREATININE, URINE 61.2 MG/DL
[2025-03-22 18:29] LABS: MALB URINE SIEMENS 32.0 MG/L; MAU/CREAT RATIO 52.2 MCG/MG (0.0-30.0)
[2025-03-22 18:31] LABS: ALT/SGPT 20.0 U/L (7.0-40); AST/SGOT 21.0 U/L (<34); CALCIUM LEVEL 9.4 MG/DL (8.3-10.6); CARBON DIOXIDE LEVEL 32.0 MMOL/L (20-31); CHLORIDE LEVEL 104.0 MMOL/L (98-107); CHOLESTEROL LEVEL 203.0 MG/DL (<200); CHOLESTEROL RISK RATIO 4.11 (<5); CREATININE FOR GFR 0.82 MG/DL (0.55-1.30); GLOMERULAR FILTRATION RATE 78.4 (>45); LDL CHOLESTEROL 95.9 MG/DL (<100); NON-HDL-C 153.7 MG/DL; POTASSIUM SERUM 4.0 MMOL/L (3.5-5.1); SODIUM LEVEL 141.0 MMOL/L (136-145); TRIGLYCERIDES LEVEL 289.0 MG/DL (<150)
[2025-03-22 18:32] LABS: TOTAL 25(OH) VITAMIN D 29.7 NG/ML (20.0-100.0)
== END ==
LOC: M LAB 17:10
PROVIDERS: ATTEND Nurse Practitioner
DX: E66.3 Overweight (principal); Z79.899 Other long term (current) drug therapy

== ENCOUNTER → 2025-06-03 | Outpatient (CLI) | payer OTHER, MEDICAID ==
[~2025-06-03] MED LIST changes: -BACTDSTA; +SULF-8
[2025-06-03 12:34] LABS: CALCIUM LEVEL 8.9 MG/DL (8.3-10.6); CARBON DIOXIDE LEVEL 30 MMOL/L (20-31); CHLORIDE LEVEL 103 MMOL/L (98-107); CHOLESTEROL LEVEL 203 MG/DL (<200); CHOLESTEROL RISK RATIO 3.89 (<5); CREATININE FOR GFR 0.71 MG/DL (0.55-1.30); GLOMERULAR FILTRATION RATE > 90.0 (>45); LDL CHOLESTEROL 121.7 MG/DL (<100); MAGNESIUM LEVEL 1.9 MG/DL (1.8-2.4); NON-HDL-C 150.9 MG/DL; POTASSIUM SERUM 4.4 MMOL/L (3.5-5.1); SODIUM LEVEL 139 MMOL/L (136-145); TRIGLYCERIDES LEVEL 146 MG/DL (<150)
[2025-06-03 12:36] LABS: FREE T4 1.10 NG/DL (0.89-1.76)
== END ==
LOC: M LAB 11:41
PROVIDERS: ATTEND Nurse Practitioner Family
DX: R00.2 Palpitations (principal); Z13.220 Encounter for screening for lipoid disorders; Z79.899 Other long term (current) drug therapy